=== PATIENT | female | born 1955 | race Caucasian/White ===

== ENCOUNTER 2016-10-06 16:04 | Inpatient (IN) | payer OTHER ==
[~2016-10-06] VITALS: Ht 160 cm; Wt 91.8 kg
[~2016-10-06 16:04] MED LIST: ASPI-628 PO; ATOR20TA PO; DULO60CA42 PO; ESOM20CA28 PO; HYG25 PO; LEVO50TA6 PO; LORA0.5T PO; MAGN250T29 PO; MULT-1007 PO; OMEG1CAP25 PO; RISP0.254 PO; VERA180T5 PO
[2016-10-06 16:09] VITALS: BP 128/76; PULSE 85; RESP 20; O2SAT 97
[2016-10-06] MEDS ORDERED: Heparin 25K Unit/500mL 0.45 NS 25,000 UNIT in IV Premix 1 EACH IV SCH (16:25)
[2016-10-06] MEDS ORDERED: Heparin 5,000 Unit/mL Inj IVPUSH PRN (16:25)
[2016-10-06] MEDS ORDERED: Heparin 5,000 Unit/mL Inj IVPUSH ONE (16:25)
[2016-10-06 16:30] LABS: BASOPHILS % (AUTO) 0.2 % (0-3); EOSINOPHILS % (AUTO) 0.8 % (0-5); MONOCYTES % (AUTO) 7.3 % (4-12); Mean Corpuscular Hemoglobin 29.3 pg (27.0-35.0); Mean Corpuscular Volume 88.7 fL (81-100); NEUTROPHILS % (AUTO) 79.5 % (40-74); Platelet Count 415 bil/L (150-400)
[2016-10-06 16:53] LABS: Magnesium 1.5 mg/dL (1.6-2.6)
--- NOTE | 2016-10-06 17:10 | ED.REPORT ---
HPI-Abd Pain F 40 and Over Date of Service Oct 06, 2016 ED Provider: García Cote MD A 61 year old female with a medical history including GERD, hypothyroidism, hypertension, and hyperlipidemia presents to the ED with worsening epigastric abdominal pain onset this morning, while at work. The pain is "burning" in nature, localized in the RUQ with radiation to her back. The patient also reports nausea. She denies vomiting, chest pain, hematochezia, melena, dysuria, or other symptoms. The patient had a similar episode of pain on 09/30/16. She has an upcoming appointment with GI. The patient drank 1/2 cup of an over-the- counter laxative around 15:30. Nursing Notes Stated Complaint: PAIN IN STOMACH THAT IS AFFECTING BACK Chief Complaint: Female Abdominal Pain Nursing Notes Reviewed: Yes Allergies: Coded Allergies: No Known Allergies (Unverified Allergy, Unknown, 10/06/16) Uncoded Allergies: " SOMETHING GAVE ME HIVES" (Allergy, Unknown, 08/12/14) Scheduled Aspirin Chew (Aspirin Chew) 81 Mg Chew 81 MG PO HS Atorvastatin (Lipitor) 20 Mg Tablet 20 MG PO HS Chlorthalidone (Chlorthalidone) 25 Mg Tablet 25 MG PO DAILY Duloxetine (Cymbalta) 60 Mg Capsule.dr 90 MG PO HS Take a 60 mg and 30 mg pill together Esomeprazole Magnesium (Nexium) 20 Mg Capsule.dr 40 MG PO BIDWM Folic Acid/Multivits-Min/Lut (Multi-Vitamin Gummies) 1 Each Tab.chew 1 EACH PO HS Levothyroxine (Levothyroxine) 50 Mcg Tablet 50 MCG PO QAM Lisinopril (Lisinopril) 10 Mg Tablet 10 MG PO BID Magnesium Oxide (Magnesium) 500 Mg Capsule 500 MG PO HS Hudson-3 Fatty Acids/Fish Oil ([place]udson 3 Fish Oil Softgel) 1 Each Capsule.dr 1 EACH PO HS Scheduled PRN Famciclovir (Famciclovir) 500 Mg Tablet 500 MG PO TID PRN PRN HERPES BREAKOUT Lorazepam (Lorazepam) 0.5 Mg Tablet 0.5 MG PO Q8H PRN PRN For Anxiety Simethicone (Gas-X) 80 Mg Tablet 80-160 MG PO DAILY PRN PRN GAS General Time Seen by MD: 16:14 Chief Complaint Abdominal pain Hx Obtained From: Patient Arrived By: Walk-in Sudden in Onset?: No Onset Occurred: 5 - 8 hours ago Symptom Duration: Since onset Progression since Onset: Gradually worsening Location: : Epigastric: RUQ Quality: Painful Radiation: : Back Severity: Current: Moderate Severity: Maximum: Moderate Associated with: Denies: Dysuria, Fever, Hematochezia Pertinent Negative: Relieved by nothing Context Related History: Reports: Abdominal surgery, GERD Recent Healthcare: No recent doctor visit Similar Sx Previous: Yes Past Medical History Past Medical History Notes: PCP: Dr. Daly Past Medical History Hypothyroidism. Gastroesophageal reflux disease. Normal Myocardial perfusion study in June 2012 Anxiety/Depression Migraines Obstructive sleep apnea Reports: GERD, Hyperlipidemia, Hypertension Reports: Thyroid disease Past Surgical History C6-7 cervical spine surgery. Sinus surgeries x2. Breast reduction surgery. Basal cell carcinoma removed from her eyelid. 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 Physical Exam Vital Signs Vital Signs (First) Date Time Temp Pulse Resp B/P Pulse Ox O2 Delivery O2 Flow Rate FiO2 10/06/16 16:09 36.2 85 20 128/76 97 Initial VS: Reviewed ENT: Conjunctiva normal, No scleral icterus Neurologic: Alert, Oriented, Nonfocal Psychiatric: Mood/affect normal, Behavior normal, Normal thought content General/Constitutional: Awake, Alert Respiratory / Chest: Breath sounds NL, Breath sounds = bilat, No respiratory distress Cardiovascular: Heart rate NL, Regular rhythm, Heart sounds NL, No gallop, No murmurs, No rubs, Peripheral circulation NL (Good distal pulses) Abdomen: Soft, No distention Tenderness/Guarding/Rebound: Positive: Tender RUQ... (Severe) Guarding in RUQ Back: Full range of motion, No CVA tenderness Head / Eyes: Atraumatic, Normocephalic Skin: Warm, Dry Interpretation & Diagnostics Abdomen US: IMPRESSION: 1. No evidence of cholelithiasis or cholecystitis. 2. Increased hepatic echogenicity compatible with steatosis. Dictated by: Yoan Garcia M.D. on 10/06/2016 at 19:22 URINE DIPSTICK: Bedside Urine Specific [place] * 1.010 Bedside Urine pH * 5 Bedside Urine Leukocyte Esterase * ++ Bedside Urine Nitrite * Negative Bedside Urine Protein * Negative Bedside Urine Glucose * Normal Bedside Urine Ketones * Negative Bedside Urine Urobilinogen * Normal Bedside Urine Bilirubin * Negative Bedside Urine Occult Blood * Trace Urine to Lab * Yes Lab Results Interpretation Result Diagram: 10/06/16 1618 10/06/16 1618 Test 10/06/16 16:18 10/06/16 17:05 10/06/16 17:24 White Blood Count 20.2th/mm3 (3.8-10.1) Red Blood Count 4.71mil/mm3 (3.90-5.20) Hemoglobin 13.8g/dL (12.0-15.6) Hematocrit 41.8% (35.0-46.0) Mean Corpuscular Volume 88.7fL (81-100) Mean Corpuscular Hemoglobin 29.3pg (27.0-35.0) Mean Corpuscular Hemoglobin Concent 33.0% (32.0-37.0) Red Cell Distribution Width 14.3% (12.3-15.4) Platelet Count 415bil/L (150-400) Neutrophils (%) (Auto) 79.5% (40-74) Lymphocytes (%) (Auto) 11.9% (14-46) Monocytes (%) (Auto) 7.3% (4-12) Eosinophils (%) (Auto) 0.8% (0-5) Basophils (%) (Auto) 0.2% (0-3) Sodium Level 135mEq/L (134-144) Potassium Level 3.5mEq/L (3.5-5.2) Chloride Level 93mEq/L (97-108) Carbon Dioxide Level 24mmol/L (18-29) Blood Urea Nitrogen 13mg/dL (8-27) Creatinine 0.89mg/dL (0.57-1.00) Estimat Glomerular Filtration Rate 92mL/min (>59) Glucose Level 138mg/dL (60-99) Calcium Level 10.0mg/dL (8.5-10.1) Magnesium Level 1.5mg/dL (1.6-2.6) Total Bilirubin 0.5mg/dL (0.0-1.2) Aspartate Amino Transf (AST/SGOT) 20U/L (0-50) Alanine Aminotransferase (ALT/SGPT) 18U/L (0-32) Alkaline Phosphatase 86U/L (25-165) Total Protein 8.0g/dL (6.4-8.4) Albumin 4.2g/dL (3.4-5.0) Lipase 90U/L (13-60) Hold Urine Received (Received) Lactic Acid Level 2.9mmol/L (0.4-2.0) Hold Cooley Top Tube Received (Received) Urine Color Yellow (YELLOW) Urine Appearance Clear (CLEAR,HAZY) Urine pH 6.0 (5.0-8.0) Urine Specific [place] 1.020 (1.003-1.035) Urine Protein Negativemg/dL (NEG,TRACE) Urine Glucose (UA) Negativemg/dL (NEGATIVE) Urine Ketones Negativemg/dL (NEGATIVE) Urine Occult Blood Trace (NEGATIVE) Urine Nitrite Negative (NEGATIVE) Urine Bilirubin Negative (NEGATIVE) Urine Urobilinogen Normalmg/dL (NORMAL) Urine Leukocyte Esterase Moderate (NEGATIVE) Urine RBC 0-2/hpf (0-2) Urine WBC 0-5/hpf (0-5) Urine Epithelial Cells Few/hpf (NONE-MOD) Urine Crystals None seen (NONE SEEN) Urine Bacteria Few/hpf (NONE-FEW) Urine Hyaline Casts None/lpf (NONE) Urine Granular Casts None seen (NONE SEEN) Urine Waxy Casts None seen (NONE SEEN) Urine Red Blood Cell Casts None seen (NONE SEEN) Urine White Blood Cell Casts None seen (NONE SEEN) Urine Mucus None seen (None Seen) Urine Trichomonas None seen (NONE SEEN) Urine Yeast None (NONE SEEN) Urinalysis Comment None Urine Culture Reflexed Indicated CT Abd / Pelvis Interpretation MPRESSION: 1. Mild mesenteric fat stranding adjacent to the uncinate process of the pancreas and 3rd portion of the duodenum may reflect a mild pancreatitis or duodenitis. Recommend correlation clinically including with laboratory values. No evidence of associated fluid collections or free air. Dictated by: Yoan Garcia M.D. on 10/06/2016 at 18:43 Study type: Abdominal CT IV contrast, Abdom CT oral contrast Interpretation / Wet Read by: Interpret - Radiologist Re-Eval/Medical Decision Med Decision/Clinical Course A 61 year old female with a medical history including GERD, hypothyroidism, hypertension, and hyperlipidemia presents to the ED with worsening epigastric abdominal pain onset this morning, while at work. The pain is "burning" in nature, localized in the RUQ with radiation to her back. The patient also reports nausea. She denies vomiting, chest pain, hematochezia, melena, dysuria, or other symptoms. The patient had a similar episode of pain on 09/30/16. She has an upcoming appointment with GI. The patient drank 1/2 cup of an over-the- counter laxative around 15:30. Here in the emergency department the patient is afebrile and hemodynamically stable although she appears quite uncomfortable. LABS: Leukocytosis of 20 - increased from prior of 10, two years ago Stable hematocrit of 41.8 CMP unremarkable LFTs within normal limits Lipase mildly elevated at 90 UA: Moderate leukocytes, few bacteria, no nitrites, and trace blood present, otherwise normal Abdomen US: IMPRESSION: 1. No evidence of cholelithiasis or cholecystitis. 2. Increased hepatic echogenicity compatible with steatosis. Dictated by: Yoan Garcia M.D. on 10/06/2016 at 19:[address]: 1. Mild mesenteric fat stranding adjacent to the uncinate process of the pancreas and 3rd portion of the duodenum may reflect a mild pancreatitis or duodenitis. Recommend correlation clinically including with laboratory values. No evidence of associated fluid collections or free air. Dictated by: Yoan Garcia M.D. on 10/06/2016 at 18:43 Patient received IV fluids, pantoprazole, Dilaudid, and Zofran in the ED. The patient's laboratory workup today is relatively unremarkable except for her significant leukocytosis and mildly elevated lipase. Her overall presentation is quite consistent with acute pancreatitis though the cause at this moment remains unclear. I would expect her lipase to be significantly more elevated given the degree of her discomfort however leukocytosis is impressive. The abdominal CT as below demonstrates Stranding and inflammation about the duodenum and pancreas which is consistent with her pain today. I treated her with Zofran for nausea, IV fluids and hydromorphone for pain. She has been made nothing by mouth. She will be admitted to the hospitalist service and consultation with gastroenterology for further management. She was transferred in stable condition. Source of Hx: Old records Re-Evaluation/Progress : Time of Eval: 19:50 Patient Status: Condition improved Re-Evaluation/Progress Note: Discussed with patient US, CT, and lab results, diagnosis, and plan for admit. Patient agrees with plan for care and all questions were addressed. 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: Agrees with eval, Agrees with plan, Accepts admit Counseled Regarding: Diagnosis, Lab results, Need for admission Discharge & Departure Primary Impression: Pancreatitis Chronicity: acute Pancreatitis type: unspecified pancreatitis type Acute pancreatitis complication: unspecified Qualified Code: K85.90 - Acute pancreatitis without necrosis or infection, unspecified Additional Impressions: Duodenitis Epigastric pain Nausea and vomiting Vomiting type: unspecified Vomiting Intractability: unspecified Qualified Code: R11.2 - Nausea with vomiting, unspecified Elevated lipase Leukocytosis Leukocytosis type: unspecified Qualified Code: D72.829 - Elevated white blood cell count, unspecified Disposition: ADMITTED TO HOSPITAL Discharge Condition All VS Reviewed: Yes Condition: Improved Referrals: Babita Adair (PCP) Joselineibandrae Attestation Portions of this note were transcribed by Amanda Novak. I, Dr. Cote, personally performed the history, physical exam, and medical decision-making; I reviewed and confirmed the accuracy of the information in the transcribed note. Signed by: Malena Noble, 10/06/2016, 22:35 copies to: Babita Adair Beck O MD Oct 06, 2016 17:10 AMANDA NOVAK Oct 06, 2016 17:18
[2016-10-06] MEDS ORDERED: Ondansetron 2 mg/mL 2 mL Inj IVPUSH ONE (17:20)
[2016-10-06] MEDS ORDERED: Pantoprazole 4 mg/mL 10 mL Inj IVPUSH ONE (17:20)
[2016-10-06] MEDS ORDERED: 0.9% Sodium Chloride 1,000 ML IV ONE (17:20)
[2016-10-06 17:34] LABS: APPEARANCE,URINE CLEAR (CLEAR,HAZY); COLOR,URINE YELLOW (YELLOW)
[2016-10-06 17:35] LABS: OCCULT BLOOD,URINE TRACE (NEGATIVE); UROBILINOGEN,URINE NORMAL (NORMAL)
[2016-10-06] MEDS: HYDROmorphone 0.5 mg/0.5 mL iSecure Syringe IVPUSH PRN ×2 (17:35→19:37)
--- NOTE | 2016-10-06 18:52 | DRSVH ---
PROCEDURE: CT ABDOMEN AND PELVIS WITH CONTRAST ([id number]) INDICATIONS: Right upper quadrant abdominal pain. TECHNIQUE: After the administration of oral and intravenous contrast, 5 mm thick sections acquired from the diap hragms to the symphysis. 5 mm thick coronal and sagittal reformats were performed. For radiation do se reduction, the following was used: automated exposure control, adjustment of mA and/or kV accordi ng to patient size. COMPARISON: None. FINDINGS: Image quality: Excellent. ABDOMEN: Lung bases: There is mild dependent atelectasis. A small hiatal hernia is present. Heart size is no rmal. Solid organs: Liver and spleen are normal in size and enhancement. Gallbladder appears within rosalee l limits without calcified gallstones or wall thickening. Biliary system is non-dilated. No adrenal nodules. Kidneys are normal in size and enhancement, without hydronephrosis. There is mild fat stranding within the mesenteric root along the uncinate process of the pancreas and adjacent to the 3rd portion of duodenum. Peritoneum and bowel: Stomach, small bowel, and colon loops are normal in caliber and wall thickness . No free fluid or air. Nodes and vessels: No retroperitoneal or mesenteric adenopathy. Aorta and inferior vena cava are no rmal in caliber. Miscellaneous: No ventral hernias. PELVIS: Genitourinary: Bladder wall thickness is normal. Miscellaneous: No inguinal hernias or adenopathy. Bones: No suspicious bony lesions. No vertebral body compression fractures. IMPRESSION: 1. Mild mesenteric fat stranding adjacent to the uncinate process of the pancreas and 3rd portion of the duodenum may reflect a mild pancreatitis or duodenitis. Recommend correlation clinically includ ing with laboratory values. No evidence of associated fluid collections or free air. Dictated by: Yoan Garcia M.D. on 10/06/2016 at 18:43 Approved by: Yoan Garcia M.D. on 10/06/2016 at 18:51
--- NOTE | 2016-10-06 19:26 | DRSVH ---
PROCEDURE: US ABDOMEN ([id number]) INDICATIONS: ruq pain, suspect cholecystitis TECHNIQUE: Real-time scanning was performed of the abdominal and retroperitoneal organs, with image documentatio n. COMPARISON: [facility], CT, CT ABD PELVIS W CON, 10/06/2016, 18:34. FINDINGS: Liver: Liver is normal in size with increased cortical echogenicity and a coarse sonographic echotex ture consistent with fatty infiltration. Gallbladder: No gallstones, gallbladder wall thickening, or pericholecystic fluid. Biliary ducts: Intrahepatic bile ducts are non-dilated. Extrahepatic bile duct caliber measures up to 4 mm. Normal is 6-7 mm or less in diameter, or 10 mm or less post-cholecystectomy. Pancreas: Visualized portions of the pancreas are sonographically normal. Spleen: Spleen is normal in size and homogeneous in echotexture. Kidneys: Right kidney measures 10.6 cm long; left kidney measures 11.1 cm long. No hydronephrosis. Aorta: Visualized aorta is normal in caliber at less than 3 cm. Iliacs: Proximal common iliac arteries are normal in caliber at less than 2.5 cm. IVC: Intrahepatic inferior vena cava is patent. Miscellaneous: No free abdominal fluid. IMPRESSION: 1. No evidence of cholelithiasis or cholecystitis. 2. Increased hepatic echogenicity compatible with steatosis. Dictated by: Yoan Garcia M.D. on 10/06/2016 at 19:22 Approved by: Yoan Garcia M.D. on 10/06/2016 at 19:24
[2016-10-06] MEDS ORDERED: Lactated Ringer's 1,000 ML IV SCH (19:52)
[2016-10-06] MEDS ORDERED: Ondansetron 2 mg/mL 2 mL Inj IVPUSH PRN ×2 (19:55→20:05)
[2016-10-06] MEDS ORDERED: Alum-Mag Hydrox-Simeth 30 mL Suspension PO PRN ×2 (19:55→20:05)
[2016-10-06] MEDS ORDERED: Acetaminophen IV 1,000 MG in IV Premix 1 EACH IV PRN (20:05)
[2016-10-06] MEDS ORDERED: Polyethylene Glycol (PEG) 17 Gm Powder PO PRN (20:05)
[2016-10-06] MEDS ORDERED: LISI10TA PO (20:10)
[2016-10-06] MEDS ORDERED: FAMC500T18 PO (20:10)
[2016-10-06] MEDS ORDERED: ASPI81TA3 PO (20:12)
[2016-10-06] MEDS ORDERED: SIME80TA53 PO (20:12)
[2016-10-06] MEDS ORDERED: FOLI-89 PO (20:12)
[2016-10-06] MEDS ORDERED: MAGN500C4 PO (20:13)
--- NOTE | 2016-10-06 20:21 | PCM.HPMED ---
Subjective Date of Service Oct 06, 2016 Primary Provider: Admitting Physician: Primary Care Physician: Babita Adair Attending Physician: Admit Status: From the Emergency Department Chief Complaint: Epigastric Abdominal pain History of Present Illness: This is a pleasant 61 year old female with a medical history including obstructive sleep apnea wears CPAP at home, GERD, hypothyroidism, hypertension, and hyperlipidemia presented to the ED with worsening RuQ and epigastric abdominal pain that radiates to the back onset this morning at approximately 0300. Patient states that she had similar pain on 09/30/2018 for her 's birthday. Patient states that she had taco soup and enchiladas on the day with 4-5 out of 10 epigastric pain that eventually resolved over 24 hours. Patient states that last night she had 5 potatoes with sausage and an ache. In workup early this morning with 9-10/10 burning abdominal pain. Pain is described as a burning sensation in the epigastric region and is associated with nausea however patient denies vomiting. Patient states today she cottage cheese with fruit cocktail and tolerated this fine. She denies any previous epigastric or right upper quadrant pain prior to September 30. She does occasionally have a little bit of alcohol but this is very rarely. Patient's last drink was on September 30 where she took some sips of Coke otherwise did not drink. Patient does have a swallow study with her instructional technology coach for history of acid reflux scheduled in 2 days. She denies fever, vomiting, chest pain, hematochezia, melena, dysuria, or other symptoms. The patient had a similar episode of pain on 09/30/16. She has a swallow test for GERD scheduled in two days. The patient drank 1/2 cup of an [id number] laxative around 15:30 with no help. The patient's Racine score is a 7 and consistent with organ dysfunction. Vital signs in the ED: Temperature 36.2, pulse 85, RR 20, blood pressure 128/76 with a map of 93, pulse oximetry 97% on room air Patient was given 1 L of fluids normal saline in the ED. Patient was given 40 of Protonix IV Patient was given Zofran 8 mg IV once. Lipase was 90 UA showed trace occult blood, few bacteria otherwise negative UA Urine culture is pending Hemogram showed: WBCs 20.2 with 79.5% PMNs, H/H 13.8/41.8, MCV 88.7, MCH 29.3, MCHC 33.0, platelet count 415, Chemistry panel was significant for chloride of 93, glucose of 138, magnesium 1.5 CT abdomen and pelvis showed: Mild mesenteric fat stranding adjacent to the uncinate process of the pancreas and 3rd portion of the duodenum may reflect a mild pancreatitis or duodenitis. Recommend correlation clinically including with laboratory values. No evidence of associated fluid collections or free air. Ultrasound abdomen showed: 1. No evidence of cholelithiasis or cholecystitis. Increased hepatic echogenicity compatible with steatosis. Review of Systems: A comprehensive review of systems was conducted and was negative except as mentioned in history of present illness. Allergies Coded Allergies: No Known Allergies (Unverified Allergy, Unknown, 10/06/16) Uncoded Allergies: " SOMETHING GAVE ME HIVES" (Allergy, Unknown, 08/12/14) Home Medications Aspirin (Aspir 81) 81 Mg Tablet.dr 81 MG PO DAILY Atorvastatin (Lipitor) 20 Mg Tablet 20 MG PO HS Chlorthalidone (Chlorthalidone) 25 Mg Tablet 25 MG PO DAILY Duloxetine (Cymbalta) 90 MG PO PM Take a 60 mg and 30 mg pill together Esomeprazole Magnesium (Nexium) 20 Mg Capsule.dr 40 MG PO TWICE A DAY Levothyroxine (Levothyroxine) 50 Mcg Tablet 50 MCG PO DAILY Magnesium Oxide (Magnesium) 500 MG PO EVERY OTHER DAY history of migraines Barre-3 Fatty Acids/Fish Oil (Barre 3 Fish Oil Softgel) 1 Each Capsule.dr 1 EACH PO DAILY Risperidone (Risperidone) 0.25 Mg Tablet 1-4 TAB PO HS Lisinopril 10 mg twice a day PRN Lorazepam (Lorazepam) 0.5 Mg Tablet 0.5 MG PO HS PRN PRN For Insomnia Antacid 750 mg- 80 mg takes 1-2 when necessary Multivitamin (Multi-Vitamin Daily) 1 Each Tablet 1 EACH PO Famciclovir 500 mg when needed every 8 hours 5 days PMH Hypothyroidism. Gastroesophageal reflux disease. Normal Myocardial perfusion study in June 2012 Anxiety/Depression Migraines not since October 2015 Obstructive sleep apnea or CPAP at home Reports: GERD, Hyperlipidemia, Hypertension Reports: Thyroid disease Obesity Genital herpes Basal cell carcinoma the left eyelid PCP: Babita Irving Surgical History C6-7 cervical spine surgery. Sinus surgeries x2. 1986 Breast reduction surgery. Basal cell carcinoma removed from her eyelid and he 93 Vaginal surgery Reports: Total vaginal Hysterectomy 1984 Family History Mom with hypertension and coronary artery disease Dad with coronary artery disease Aunt with hypertension, hyperlipidemia, diabetes mellitus Sister of metastatic sarcoma Social History Hx Alcohol Use: No Hx Substance Use: No Hx Tobacco Use: Yes Smoking Status: Former Smoker Exam Vital Signs Vital Sign - Last Date Time Temp Pulse Resp B/P Pulse Ox O2 Delivery O2 Flow Rate FiO2 10/06/16 16:09 36.2 85 20 128/76 97 Exam General: Patient is alert and oriented 3, in no acute distress, but in mild pain 3 out of 10 resting comfortably in bed, jovial, speaking full sentences, HEENT: NC/AT, eyes, PERRLA, EOMI, neck, soft supple, no adenopathy, no JVD, no masses, no thyromegaly, throat mucous membranes pink and dry, no erythema, no exudates. Lungs: CTAB all salazar, no wheezes, no rhonchi, no crackles, no adventitious lung sounds, no use of accessory muscles of respiration, good air movement, good respiratory effort. Heart: Regular rate and rhythm, no murmur, S1-S2 present, no rub, no click, no distant heart sounds, Abdomen: Soft, tender right upper quadrant to palpation and percussion, tender epigastric, patient has Acosta's point at the level of the ninth rib on the right, nondistended, bowel sounds active, no rebound, no guarding, Genitourinary: No CVA tenderness, no suprapubic tenderness, no Hancock catheter, Extremities: Muscle strength, 5 out of 5 upper/lower extremity and symmetric laterally, pulses equal and symmetric upper/lower extremity including radial and dorsalis pedis, no edema Neurologic: Grossly neurologically intact, speaking in full sentences, no focal neurological signs Skin: Warm and dry, no rashes no petechiae Psychiatric: Mood is cheerful and mood and affect are congruent and appropriate. Lab and Diagnostics Result Diagram: 10/06/16 1618 10/06/16 161 X-Rays, CTs and MRIs Date of Service: 10/06/161818 PROCEDURE: CT ABDOMEN AND PELVIS WITH CONTRAST INDICATIONS: Right upper quadrant abdominal pain. TECHNIQUE: After the administration of oral and intravenous contrast, 5 mm thick sections acquired from the diaphragms to the symphysis. 5 mm thick coronal and sagittal reformats were performed. For radiation dose reduction, the following was used : automated exposure control, adjustment of mA and/or kV according to patient size. COMPARISON: None. FINDINGS: Image quality: Excellent. ABDOMEN: Lung bases: There is mild dependent atelectasis. A small hiatal hernia is present. Heart size is normal. Solid organs: Liver and spleen are normal in size and enhancement. Gallbladder appears within normal limits without calcified gallstones or wall thickening. Biliary system is non-dilated. No adrenal nodules. Kidneys are normal in size and enhancement, without hydronephrosis. There is mild fat stranding within the mesenteric root along the uncinate process of the pancreas and adjacent to the 3rd portion of duodenum. Peritoneum and bowel: Stomach, small bowel, and colon loops are normal in caliber and wall thickness. No free fluid or air. Nodes and vessels: No retroperitoneal or mesenteric adenopathy. Aorta and inferior vena cava are normal in caliber. Miscellaneous: No ventral hernias. PELVIS: Genitourinary: Bladder wall thickness is normal. Miscellaneous: No inguinal hernias or adenopathy. Bones: No suspicious bony lesions. No vertebral body compression fractures. IMPRESSION: 1. Mild mesenteric fat stranding adjacent to the uncinate process of the pancreas and 3rd portion of the duodenum may reflect a mild pancreatitis or duodenitis. Recommend correlation clinically including with laboratory values. No evidence of associated fluid collections or free air. Dictated by: Yoan Garcia M.D. on 10/06/2016 at 18:43 Approved by: Yoan Garcia M.D. on 10/06/2016 at 18:51 Additional Diagnostics: Date of Service: 10/06/16 1720 PROCEDURE: US ABDOMEN INDICATIONS: ruq pain, suspect cholecystitis TECHNIQUE: Real-time scanning was performed of the abdominal and retroperitoneal organs, with image documentation. COMPARISON: [facility], CT, CT ABD PELVIS W CON, 10/06/2016, 18:34. FINDINGS: Liver: Liver is normal in size with increased cortical echogenicity and a coarse sonographic echotexture consistent with fatty infiltration. Gallbladder: No gallstones, gallbladder wall thickening, or pericholecystic fluid. Biliary ducts: Intrahepatic bile ducts are non-dilated. Extrahepatic bile duct caliber measures up to 4 mm. Normal is 6-7 mm or less in diameter, or 10 mm or less post-cholecystectomy. Pancreas: Visualized portions of the pancreas are sonographically normal. Spleen: Spleen is normal in size and homogeneous in echotexture. Kidneys: Right kidney measures 10.6 cm long; left kidney measures 11.1 cm long. No hydronephrosis. Aorta: Visualized aorta is normal in caliber at less than 3 cm. Iliacs: Proximal common iliac arteries are normal in caliber at less than 2.5 cm. IVC: Intrahepatic inferior vena cava is patent. Miscellaneous: No free abdominal fluid. IMPRESSION: 1. No evidence of cholelithiasis or cholecystitis. 2. Increased hepatic echogenicity compatible with steatosis. Dictated by: Yoan Garcia M.D. on 10/06/2016 at 19:22 Approved by: Yoan Garcia M.D. on 10/06/2016 at 19:24 Assessment & Plan This is a pleasant 61-year-old female with history of hypothyroidism, hyperlipidemia, hypertension and acid reflux who presented with acute right upper quadrant and epigastric tenderness onset at 03 100 this morning related 9- 10 out of 10 and associated with nausea. Patient had elevated lipase of 90 and was admitted to the [facility] for observation and further workup. # Acute gastric abdominal pain, Pancreatitis versus duodenitis, POA, active -Patient describing 9-10 out of 10 acute right upper quadrant and epigastric abdominal pain onset 03 100 this morning. -Patient had upper endoscopy done 10/13/[address]Abou Minor for feeling PPI therapy. Impression was upper endoscopy to second part of the duodenum, a 3 cm hiatal hernia was seen, irregular squamocolumnar junction was biopsied, -Vital signs in the ED: Temperature 36.2, pulse 85, story rate 20, blood pressure 128/76 with a map of 93, pulse oximetry 97% on room air -CT abdomen and pelvis showed: Mild mesenteric fat stranding adjacent to the uncinate process of the pancreas and 3rd portion of the duodenum may reflect a mild pancreatitis or duodenitis. Recommend correlation clinically including with laboratory values. No evidence of associated fluid collections or free air. -Ultrasound abdomen showed: 1. No evidence of cholelithiasis or cholecystitis. Increased hepatic echogenicity compatible with steatosis. -Physical exam findings significant for a Acosta's point consistent with acute pancreatitis located at the right costal chondral junction of rib 9. -Racine II score (7). A score of 2 or > in any category = organ failure. -Patient does not meet sepsis criteria, she is not febrile, heart rate is less than 90, blood pressure is 128/76, respiratory rate is 20, temperature is 36.2, however patient does have a elevated white blood cell count of 20 -IV Fluids normal saline at 200 mL per hour -Patient's current pain is 3 out of 10 on pain medication in ED. Patient states that her pain was 9-10 out of 10 this morning -IV Dilaudid 0.5-1 mg every 4 hours when necessary. We will consider adding additional if pain not controlled on this -DVT prophylaxis with subcutaneous heparin every 8 hours -NPO for now with transition to begin soft, low fat diet when pain decreases and patient is able to tolerate -Continue Protonix 40 mg IV -ESR and CRP ordered -Of note patient is scheduled for swallow study on Thursday at this facility. This was ordered by her PCP Babita Irving. #Leukocytosis present on admission, -WBCs, 20.2 -Likely secondary to #1, we will continue to monitor -We will order pro calcitonin -Ordered and pending lactic acid # Elevated lipase, present on admission, active - Lipase 90, likely secondary to #1 acute pancreatitis versus duodenitis #Elevated glucose, POA, active -Glucose 138 -Continue to monitor #Hypothyroidism. -Continue home medication levothyroxine #Gastroesophageal reflux disease. -Hold home medication esomeprazole -IV Protonix 40 mg daily ordered #Anxiety/Depression -We will hold home medication dose Loxitane 90 mg overnight #Migraines -not since October 2015 -We will hold home medication magnesium Obstructive sleep apnea or CPAP at home -Family to bring in CPAP mask #Hyperlipidemia -Hold medication atorvastatin #Hypertension We will continue chlorthalidone 25 mg daily We will continue lisinopril 10 mg twice a day Disposition: Admitted to observation, secondary to severity of presenting symptoms, treatment plan, complexity of clinical work up, and risk of adverse events. CODE STATUS: Full code PCP: Babita Irving DVT PE prophylaxis: SCD's/Enoxiparin/SubQ heparin Q8H Contact: Tita patient's daughter [phone] [place] patient's through 6 are [phone] Vital signs in the ED: Temperature 36.2, pulse 85, story rate 20, blood pressure 128/76 with a map of 93, pulse oximetry 97% on room air Patient was given 1 L of fluids normal saline in the ED. Patient was given 40 of Protonix IV Patient was given Zofran 8 mg IV once. Lipase was 90 UA showed trace occult blood, few bacteria otherwise negative UA Urine culture is pending Hemogram showed: WBCs 20.2 with 79.5% PMNs, H/H 13.8/41.8, MCV 88.7, MCH 29.3, MCHC 33.0, platelet count 415, Chemistry panel was significant for chloride of 93, glucose of 138, magnesium 1.5 Pain Evaluation: Adequate Pain Control VTE Prophylaxis: Sub-Q Heparin (Unfractionated) Resuscitation Status: CPR: Attempt Resuscitation Attending Statement The patient was seen and examined together with house staff on 10/06/2016 and I agree with the history, exam and plan as outlined in the note above. Cayden Kilpatrick DO Oct 06, 2016 20:21 Renetta Melara DO Oct 07, 2016 03:18
[2016-10-06 20:42] VITALS: BP 138/82; PULSE 82; RESP 18; O2SAT 98
[2016-10-06 21:25] VITALS: BP 119/66; PULSE 73; RESP 20; O2SAT 94
--- NOTE | 2016-10-06 21:45 | NUR ---
Admit pt arrived to room 249-2 at 2046 per uzair, accompanied by mri special procedures technologist. and daughter. pt transferred self to bed, pt alert/oriented x3, IV on left arm saline locked at this time. pt reported RUQ abdominal pain on rate of 6/10, which is tolerable per pt. Denies Nausea at this time. Oriented pt to room. Admission is done by this RN, and med.rec. is done by admit RN. call light within reach.
[2016-10-06] MEDS: 0.9% Sodium Chloride 1,000 ML IV SCH (22:38)
[2016-10-07] VITALS (10 sets, daily range): BP systolic 92–120; BP diastolic 55–72; PULSE 63–75; RESP 12–18; O2SAT 92–99
[2016-10-07] MEDS: Heparin 5,000 Unit/mL Inj SUBQ SCH ×3 (00:38→16:52)
[2016-10-07] MEDS: HYDROmorphone 0.5 mg/0.5 mL iSecure Syringe IVPUSH PRN ×3 (03:16→12:54)
[2016-10-07 03:45] LABS: BASOPHILS % (AUTO) 0.1 % (0-3); EOSINOPHILS % (AUTO) 1.3 % (0-5); MONOCYTES % (AUTO) 10.2 % (4-12); Mean Corpuscular Hemoglobin 29.5 pg (27.0-35.0); Mean Corpuscular Volume 89.4 fL (81-100); NEUTROPHILS % (AUTO) 69.5 % (40-74); Platelet Count 339 bil/L (150-400)
[2016-10-07] MEDS: 0.9% Sodium Chloride 1,000 ML IV SCH ×2 (04:06→07:57)
--- NOTE | 2016-10-07 06:41 | NUR ---
pain pt c/o RUQ abdominal pain on rate of 6-03/08. PRN IV APAP and IVP Dilaudid administered which was effective . pt denies N/V. pt has been NPO. Gave PO medication with sip of water this morning. will continue to monitor.
[2016-10-07] MEDS ORDERED: Pantoprazole 4 mg/mL 10 mL Inj IVPUSH ONE (08:30)
[2016-10-07] MEDS ORDERED: Magnesium Sulf 4 Gm/100 mL H2O 4 GM in IV Premix 1 EACH IV ONE (08:45)
--- NOTE | 2016-10-07 09:00 | NUR ---
Pain Pt c/o abd pain at 4/10, although pt appears to be very uncomfortable. Describes it as RUQ aching. Pt given Dilaudid 1mg. This decreased pt's pain to 2/10. Pt has expressed that the pain medication only lasts a couple hours. Hospitalist was then asked to order PO pain medications.
[2016-10-07] MEDS: oxyCODONE-Acetamin 5-325 mg Tablet PO PRN ×3 (11:24→21:37)
[2016-10-07] MEDS: 0.9% NaCl + KCl 20 mEq/L 1,000 ML IV SCH ×4 (13:02→21:15)
--- NOTE | 2016-10-07 14:16 | NUR ---
Social Work-screening: Data:EMR Reviewed. Pt is a 61 y/o female who was admitted on 10/06/16 for pancreatitis per H&P. Pt's insurance is [employer] and [employer]. SW met with pt and daughter at bedside to discuss discharge planning, SW role explained. Pt resides at home with her where she remains independent with ADLS. Pt has no HH or SNF history. Pt has no intermediate accountant care insurance or VA benefits. SW discussed DPOA/advanced directive, pt has not completed this paperwork and is interested in any paperwork at this time. Per RN notes, pt has been up independent in her room. Pt's daughter or to provide transport home at discharge. No anticipated discharge needs. SW will continue to follow if needs arise. Assessment:Pt who is independent at baseline. Plan:Pt to discharge home when medically stable via POV. No discharge needs identified. SW will continue to follow if needs arise. NAUN Alvarez
--- NOTE | 2016-10-07 21:27 | PCM.PNMED ---
Subjective Date of Service Oct 07, 2016 Subjective The patient continues to have some abdominal pain. However, she is feeling better today and would like to try some clear liquids. Exam Vital Signs Vital Sign - Last Date Time Temp Pulse Resp B/P Pulse Ox O2 Delivery O2 Flow Rate FiO2 10/07/16 20:49 37.1 66 16 109/69 94 Room Air Intake and Output 10/06/16 10/06/16 10/07/16 Cumulative From/Thru 15:00 23:00 07:00 10/06/16 16:09 - 10/07/16 06:45 Intake Total 1000 ml 1000 ml Output Total 575 ml 575 ml Balance 1000 ml -575 ml 425 ml IV Total 1000 ml 1000 ml Output Urine Total 575 ml 575 ml Exam General: The patient is in no apparent distress. HEENT: Head is atraumatic and normocephalic. Eyes: Pupils are equally round and reactive to light and accommodation. Extraocular muscles are intact. Sclera are white, anicteric. Subconjunctival mucosa is pink. Ears and nose are unremarkable. Oropharynx: There is no mucosal lesions, there is no thrush, there is no pharyngitis. Neck: Is supple, there are no nodes, or masses or tenderness. Chest: Is clear to auscultation and percussion. There are no rales, rhonchi, wheezes or rubs. Heart: Rate, rhythm is regular. There is no murmur, rub or gallop. Abdomen: Good bowel sounds are present. Abdomen is obese, soft, with nonspecific right upper quadrant and epigastric tenderness. There is no rebound tenderness. There is no organomegaly or masses were appreciated. Extremities: Are symmetrical and well perfused. There is no edema, there is no cellulitis, no rash. Neurologic: There are no focal neurological deficits. Cranial nerves II through XII are intact. There are no sensory or motor deficits. Psychiatric: Patients mood is calm and shows no sign of agitation. Genital: Deferred Rectal: Deferred Lab and Diagnostics Result Diagram: 10/07/16 0340 10/07/16 0915 X-Rays, CTs and MRIs Date of Service: 10/06/16 470 PROCEDURE: CT ABDOMEN AND PELVIS WITH CONTRAST INDICATIONS: Right upper quadrant abdominal pain. TECHNIQUE: After the administration of oral and intravenous contrast, 5 mm thick sections acquired from the diaphragms to the symphysis. 5 mm thick coronal and sagittal reformats were performed. For radiation dose reduction, the following was used : automated exposure control, adjustment of mA and/or kV according to patient size. COMPARISON: None. FINDINGS: Image quality: Excellent. ABDOMEN: Lung bases: There is mild dependent atelectasis. A small hiatal hernia is present. Heart size is normal. Solid organs: Liver and spleen are normal in size and enhancement. Gallbladder appears within normal limits without calcified gallstones or wall thickening. Biliary system is non-dilated. No adrenal nodules. Kidneys are normal in size and enhancement, without hydronephrosis. There is mild fat stranding within the mesenteric root along the uncinate process of the pancreas and adjacent to the 3rd portion of duodenum. Peritoneum and bowel: Stomach, small bowel, and colon loops are normal in caliber and wall thickness. No free fluid or air. Nodes and vessels: No retroperitoneal or mesenteric adenopathy. Aorta and inferior vena cava are normal in caliber. Miscellaneous: No ventral hernias. PELVIS: Genitourinary: Bladder wall thickness is normal. Miscellaneous: No inguinal hernias or adenopathy. Bones: No suspicious bony lesions. No vertebral body compression fractures. IMPRESSION: 1. Mild mesenteric fat stranding adjacent to the uncinate process of the pancreas and 3rd portion of the duodenum may reflect a mild pancreatitis or duodenitis. Recommend correlation clinically including with laboratory values. No evidence of associated fluid collections or free air. Dictated by: Yoan Garcia M.D. on 10/06/2016 at 18:43 Approved by: Yoan Garcia M.D. on 10/06/2016 at 18:51 Additional Diagnostics Date of Service: 10/06/16 1720 PROCEDURE: US ABDOMEN INDICATIONS: ruq pain, suspect cholecystitis TECHNIQUE: Real-time scanning was performed of the abdominal and retroperitoneal organs, with image documentation. COMPARISON: [facility], CT, CT ABD PELVIS W CON, 10/06/2016, 18:34. FINDINGS: Liver: Liver is normal in size with increased cortical echogenicity and a coarse sonographic echotexture consistent with fatty infiltration. Gallbladder: No gallstones, gallbladder wall thickening, or pericholecystic fluid. Biliary ducts: Intrahepatic bile ducts are non-dilated. Extrahepatic bile duct caliber measures up to 4 mm. Normal is 6-7 mm or less in diameter, or 10 mm or less post-cholecystectomy. Pancreas: Visualized portions of the pancreas are sonographically normal. Spleen: Spleen is normal in size and homogeneous in echotexture. Kidneys: Right kidney measures 10.6 cm long; left kidney measures 11.1 cm long. No hydronephrosis. Aorta: Visualized aorta is normal in caliber at less than 3 cm. Iliacs: Proximal common iliac arteries are normal in caliber at less than 2.5 cm. IVC: Intrahepatic inferior vena cava is patent. Miscellaneous: No free abdominal fluid. IMPRESSION: 1. No evidence of cholelithiasis or cholecystitis. 2. Increased hepatic echogenicity compatible with steatosis. Dictated by: Yoan Garcia M.D. on 10/06/2016 at 19:22 Approved by: Yoan Garcia M.D. on 10/06/2016 at 19:24 Assessment & Plan This is a pleasant 61-year-old female with history of hypothyroidism, hyperlipidemia, hypertension and acid reflux who presented to [facility] emergency room with acute right upper quadrant and epigastric tenderness onset at 0310 the morning of admission. The patient stated that the pain was a 9-10 out of 10 and associated with nausea. Patient had elevated lipase of 90 and was admitted to the hospitalist service for further evaluation and treatment. # Acute gastric abdominal pain, Pancreatitis versus duodenitis, POA, active -Patient describing 9-10 out of 10 acute right upper quadrant and epigastric abdominal pain onset 0310 this morning. -Patient had upper endoscopy done 10/13/[address]Abou Minor for failing PPI therapy. Impression was upper endoscopy to second part of the duodenum, a 3 cm hiatal hernia was seen, irregular squamocolumnar junction was biopsied, -Vital signs in the ED: Temperature 36.2, pulse 85, story rate 20, blood pressure 128/76 with a map of 93, pulse oximetry 97% on room air -CT abdomen and pelvis showed: Mild mesenteric fat stranding adjacent to the uncinate process of the pancreas and 3rd portion of the duodenum may reflect a mild pancreatitis or duodenitis. Recommend correlation clinically including with laboratory values. No evidence of associated fluid collections or free air. -Ultrasound abdomen showed: 1. No evidence of cholelithiasis or cholecystitis. Increased hepatic echogenicity compatible with steatosis. -Physical exam findings significant for a Acosta's point consistent with acute pancreatitis located at the right costal chondral junction of rib 9. -[place] II score (7). A score of 2 or > in any category = organ failure. -Patient does not meet sepsis criteria, she is not febrile, heart rate is less than 90, blood pressure is 128/76, respiratory rate is 20, temperature is 36.2, however patient does have a elevated white blood cell count of 20 -IV Fluids normal saline at 200 mL per hour -Patient's current pain is 3 out of 10 on pain medication in ED. Patient states that her pain was 9-10 out of 10 this morning -IV Dilaudid 0.5-1 mg every 4 hours when necessary. We will oral Percocet at this time for improved pain control. -DVT prophylaxis with subcutaneous heparin every 8 hours -We will change patient from nothing by mouth to clear liquid diet for now. -Continue Protonix 40 mg IV every 12 hours -ESR and CRP ordered -Of note patient is scheduled for swallow study on Thursday at this facility. This was ordered by her PCP Babita Irving. -I have consulted Dr. Menon of gastroenterology to evaluate the patient in a.m. as patient may have a duodenal ulcer that is irritating the pancreas and this could be very serious situation. # Leukocytosis present on admission, -WBC improved -Likely secondary to above, we will continue to monitor -We will order pro calcitonin -Ordered lactic acid levels which have now normalized. # Elevated lipase, present on admission, active - Lipase 90, likely secondary to acute pancreatitis versus duodenitis, or both. # Elevated glucose, POA, active -Glucose 138 -Continue to monitor # Hypothyroidism. -Continue home medication levothyroxine # Gastroesophageal reflux disease. -Hold home medication esomeprazole -IV Protonix 40 mg daily ordered # Anxiety/Depression -We will hold home medication dose Loxitane 90 mg for now # Migraines -not since October 2015 -We will hold home medication magnesium -Obstructive sleep apnea or CPAP at home -Family to bring in CPAP mask # Hyperlipidemia -Hold medication atorvastatin # Hypertension -We will continue chlorthalidone 25 mg daily -We will continue lisinopril 10 mg twice a day Disposition: Admitted to observation, secondary to severity of presenting symptoms, treatment plan, complexity of clinical work up, and risk of adverse events. CODE STATUS: Full code PCP: Babita Irving DVT PE prophylaxis: SCD's/Enoxiparin/SubQ heparin Q8H Contact: Tita patient's daughter [phone] Filemon patient's through [facility] [phone] Pain Evaluation: Adequate Pain Control VTE Prophylaxis: Sub-Q Heparin (Unfractionated) VTE Mechanical Devices: Intermittant Pneumatic CD Resuscitation Status: CPR: Attempt Resuscitation JosrSlava MD Oct 07, 2016 21:27 Resuscitation Status: CPR: Attempt Resuscitation ScrogginsSlava MD Oct 07, 2016 21:27
[2016-10-07] MEDS: Pantoprazole 4 mg/mL 10 mL Inj IVPUSH SCH (21:36)
[2016-10-07] MEDS: DULoxetine 30 mg DR Capsule PO SCH (21:37)
[2016-10-08] VITALS (10 sets, daily range): BP systolic 91–118; BP diastolic 54–62; PULSE 63–80; RESP 16; O2SAT 93–99
--- NOTE | 2016-10-08 00:05 | NUR ---
Admit pt arrived to room 240-1 approximately at 2240 per gurney, accompanied by [employer]. and family at the bedside. pt transferred self to bed, pt alert/oriented x4, IV on left arm saline locked at this time. pt reported tingling/burning on left side extremities. arm strength is the same except left arm is little bit slower. no tongue deviation or facial drooping. on arrival pt was told he will have roommate. pt told this RN if he is going to have roommate, he wants to go home AMA. Talked to charge nurse, and decided to left the pt with private room. Oriented pt to room. Admission is done by this RN, and med.rec. is done by admit RN. call light within reach. will continue to monitor. Addendum: 10/08/16 at 0420 by MONY BRANCH RN WRONG Pt
[2016-10-08] MEDS: Heparin 5,000 Unit/mL Inj SUBQ SCH ×3 (01:25→17:12)
[2016-10-08] MEDS: oxyCODONE-Acetamin 5-325 mg Tablet PO PRN ×4 (02:39→21:26)
--- NOTE | 2016-10-08 04:28 | NUR ---
pain pt reported RUQ abdominal pain on rate of 3-5/10. Administered PRN Q4hr PO Percocet. pt report pain relief by resting in bed quietly and didn't voice pain afterward except she wants to take it around the clock to just keep pain down. Denies nausea. tolerated clear liquid diet. will continue to monitor.
[2016-10-08] MEDS: 0.9% NaCl + KCl 20 mEq/L 1,000 ML IV SCH ×2 (05:56→18:33)
[2016-10-08 06:46] LABS: BASOPHILS % (AUTO) 0.3 % (0-3); EOSINOPHILS % (AUTO) 2.6 % (0-5); Mean Corpuscular Volume 92.7 fL (81-100); NEUTROPHILS % (AUTO) 65.4 % (40-74); Platelet Count 310 bil/L (150-400)
[2016-10-08 07:22] LABS: Phosphorus 2.7 mg/dL (2.5-4.9)
[2016-10-08] MEDS: Pantoprazole 4 mg/mL 10 mL Inj IVPUSH SCH ×2 (09:30→17:11)
--- NOTE | 2016-10-08 11:05 | NUR ---
Social Work-readiness for discharge: Data:EMR Reviewed. Pt is on day 2 of hospitalization for pancreatitis per H&P. Pt is not medically stable anticipate tomorrow.Pt has been up independent in her room. Pt and agreeable. Pt's to provide transport home at discharge. SW will continue to follow. Assessment:Pt who is independent at baseline. Plan:Pt to discharge home when medically stable via POV. No anticipated discharge needs. SW will continue to follow. NAUN Alvarez
--- NOTE | 2016-10-08 12:21 | NUR ---
NPO Pt alert and oriented X3. Aware of plan of care. Pt to be scheduled for an EGD this afternoon. NPO. IV infusing. Up to bathroom with SBA to maneuver IV pole. Tele SR 70's.
--- NOTE | 2016-10-08 12:22 | NUR ---
Hypo-tension Pt has been hypotensive since early this morning. Her AM BP for me was 94/59. Chelsea levi and made aware. I held her Lisinopril and Chlorthalidone. Pt reported feeling a little bit dizzy, but did OK with SBA to the bathroom this afternoon. BP will continued to be monitored. Addendum: 10/08/16 at 1258 by TARUN GOINS RN Provider returned call in regards to hypotension. No new orders at this time. Continue to monitor and OK to withhold BP meds as needed.
--- NOTE | 2016-10-08 13:49 | PCM.CHPMED ---
Subjective Date of Service: Oct 08, 2016 Primary Physician: Admitting Physician: Renetta Melara DO Primary Care Physician: Babita Adair Attending Physician: Renetta Melara DO Chief Complaint: Chief Complaint: Epigastric abdominal pain History of Present Illness: GASTROENTEROLOGY CONSULTATION: Ms. Esperanza Chong is a 61 yo female with long history of GERD, obstructive sleep apnea on home CPAP, hypothyroidism, hypertension, and hyperlipidemia who presented to [facility] for worsening epigastric abdominal pain on 10/06/2016. Patient reports intermittent abdominal cramps for the last 2 days prior to admission. However, she woke up with severe epigastric pain that radiates to her back on 04/09. She also admits to associated nausea, but no vomiting, fever, chills, hematemesis, hematochezia, melena, diarrhea, or constipation. Patient reports that she has a history of "bleeding duodenal ulcer" that required an EGD when she was 21 years old. She has been on Nexium and has not had any similar symptoms since. Per record, patient had another EGD done on 10/13/[address] Frank that showed normal duodenum, a 3 cm hiatal hernia, irregular squamocolumnar junction that was biopsied. In the last 3 months, patient reports worsening acid reflux with lying down at night. She admits to occasional vomiting and aspiration while lying down. Her PCP ordered a Barium swallow that is scheduled to be today 10/08. Besides the Nexium, she is not taking any other medication for GERD. She denies taking NSAIDs on the regular basis, but admits to drinking 2 cups of coffee in the morning, some tea, and spicy/fatty diet. Patient reports to have a normal colonoscopy in her 50s. She denies alcohol, tobacco, or drug use. Her abdominal pain has improved since she got to the hospital. On admission, patient was found to have leukocytosis up to 20.2 that has been trending down. H/H trending down, currently at 10.7/34.2. LFTs within normal limit. Lipased was initially elevated to 90 on 10/06 but decreased to 34 today. Ultrasound abdomen showed no evidence of cholelithiasis or cholecystitis. Increased hepatic echogenicity compatible with steatosis. CT abdomen and pelvis showed mild mesenteric fat stranding adjacent to the uncinate process of the pancreas and 3rd portion of the duodenum may reflect a mild pancreatitis or duodenitis. No evidence of associated fluid collections or free air. Gastroenterology service was consulted for possible endoscopy to rule out duodenitis or duodenal ulcer. Review of Systems: Constitutional: Denies: Chills, Fever, Malaise, Weakness Head: Normal Eyes: Denies: Blurred Vision, Double Vision ENT: Denies: Dysphagia, Hoarseness, Ulcers/Sores in Mouth Cardiovascular: Denies: Chest Pain, Edema, Irregular Heart Rate, Palpitations Respiratory: Denies: Cough, Cough with bloody sputum, SOB with Exertion, Shortness of Breath Gastrointestinal: Reports: Abdominal Pain, Change in Appetite, Heartburn, Nausea, Denies: Black tarry stools, Blood in stool (red), Constipation, Diarrhea, Vomiting Genitourinary: Reports: No burning or pain with urination, Denies: Change in Frequency, Dysuria, Hematuria, Nocturia Neurological: Denies: Change in Speech, Confusion, Dizziness, Localized Weakness, Numbness, Somnolence PMH Past Medical History PMH Hypothyroidism. Gastroesophageal reflux disease. Normal Myocardial perfusion study in June 2012 Anxiety/Depression Migraines not active since October 2015 Obstructive sleep apnea or CPAP at home Hyperlipidemia Hypertension Obesity Genital herpes Basal cell carcinoma the left eyelid Bedside Blood Glucose: 126 Surgical History C6-7 cervical spine surgery. Sinus surgeries x2. 1985 Breast reduction surgery. Basal cell carcinoma removed from her eyelid and he 93 Vaginal surgery Reports: Total vaginal Hysterectomy 1983 Home Medications Aspirin (Aspir 81) 81 Mg Tablet.dr 81 MG PO DAILY Atorvastatin (Lipitor) 20 Mg Tablet 20 MG PO HS Chlorthalidone (Chlorthalidone) 25 Mg Tablet 25 MG PO DAILY Duloxetine (Cymbalta) 90 MG PO PM Take a 60 mg and 30 mg pill together Esomeprazole Magnesium (Nexium) 20 Mg Capsule.dr 40 MG PO TWICE A DAY Levothyroxine (Levothyroxine) 50 Mcg Tablet 50 MCG PO DAILY Magnesium Oxide (Magnesium) 500 MG PO EVERY OTHER DAY history of migraines [place]-3 Fatty Acids/Fish Oil ([place] 3 Fish Oil Softgel) 1 Each Capsule.dr 1 EACH PO DAILY Risperidone (Risperidone) 0.25 Mg Tablet 1-4 TAB PO HS Lisinopril 10 mg twice a day PRN Lorazepam (Lorazepam) 0.5 Mg Tablet 0.5 MG PO HS PRN PRN For Insomnia Antacid 750 mg- 80 mg takes 1-2 when necessary Multivitamin (Multi-Vitamin Daily) 1 Each Tablet 1 EACH PO Famciclovir 500 mg when needed every 8 hours 5 days Allergies: Coded Allergies: No Known Allergies (Unverified Allergy, Unknown, 10/06/16) Uncoded Allergies: " SOMETHING GAVE ME HIVES" (Allergy, Unknown, 08/12/14) Family History Family History Mom with hypertension and coronary artery disease Dad with coronary artery disease Aunt with hypertension, hyperlipidemia, diabetes mellitus Sister of metastatic sarcoma that required colon resection Social History Hx Alcohol Use: Yes ("occasionally")Hx Substance Use: NoHx Tobacco Use: Yes Smoking Status: Former Smoker Living Arrangement: with Family Exam Vital Signs Vital Sign - Last Date Time Temp Pulse Resp B/P Pulse Ox O2 Delivery O2 Flow Rate FiO2 10/08/16 12:27 63 10/08/16 09:30 CPAP/BIPAP 10/08/16 09:26 37.1 16 94/59 94 Intake and Output 10/07/16 10/07/16 10/08/16 Cumulative From/Thru 15:00 23:00 07:00 10/06/16 16:09 - 10/08/16 06:41 Intake Total 1352 ml 1862 ml 1888 ml 6102 ml Output Total 1800 ml 1350 ml 3725 ml Balance 1352 ml 62 ml 538 ml 2377 ml Intake Oral 360 ml 300 ml 660 ml IV Total 1352 ml 1502 ml 1588 ml 5442 ml Output Urine Total 1800 ml 1350 ml 3725 ml # Voids 3 3 Additional Information: General: Patient is alert and oriented 3, in no acute distress, resting comfortably in bed, speaking full sentences, HEENT: NC/AT, PERRLA, EOMI. Mucosal membrane dry. Neck: soft, supple, no adenopathy, no JVD, no masses, no thyromegaly. Lungs: clear to auscultation all slaazar, no wheezes, no rhonchi, no crackles, no adventitious lung sounds, no use of accessory muscles of respiration, good air movement, good respiratory effort. Heart: Regular rate and rhythm, no murmur, S1-S2 present, no rub, no click, no distant heart sounds, Abdomen: Obese, soft, non-distended. Mild tenderness to palpation in the right upper quadrant and epigastric areas. There is no rebound tenderness or guarding. There is no organomegaly or masses were appreciated. Extremities: no edema, cyanosis, or clubbing. Neurologic: Grossly neurologically intact, speaking in full sentences, no focal neurological signs Skin: Warm and dry, no rashes, no petechiae Psychiatric: Mood and affect are congruent and appropriate. Lab and Diagnostics Result Diagram: 10/08/16 0620 10/08/16 0620 X-Rays, CTs and MRIs PROCEDURE: US ABDOMEN IMPRESSION: 1. No evidence of cholelithiasis or cholecystitis. 2. Increased hepatic echogenicity compatible with steatosis. Dictated by: Yoan Garcia M.D. on 10/06/2016 at 19:22 Approved by: Yoan Garcia M.D. on 10/06/2016 at 19:24 PROCEDURE: CT ABDOMEN AND PELVIS WITH CONTRAST IMPRESSION: 1. Mild mesenteric fat stranding adjacent to the uncinate process of the pancreas and 3rd portion of the duodenum may reflect a mild pancreatitis or duodenitis. Recommend correlation clinically including with laboratory values. No evidence of associated fluid collections or free air. Dictated by: Yoan Garcia M.D. on 10/06/2016 at 18:43 Approved by: Yoan Garcia M.D. on 10/06/2016 at 18:51 Assessment & Plan Assessment 61 yo female with long history of GERD, obstructive sleep apnea on home CPAP, hypothyroidism, hypertension, and hyperlipidemia who presented to [facility] for new onset, worsening epigastric abdominal pain on 10/06/2016. Gastroenterology was consulted to evaluate for possible duodenal ulcer. Imaging: -Ultrasound abdomen: No evidence of cholelithiasis or cholecystitis. Increased hepatic echogenicity compatible with steatosis. -CT abdomen and pelvis: Mild mesenteric fat stranding adjacent to the uncinate process of the pancreas and 3rd portion of the duodenum may reflect a mild pancreatitis or duodenitis. Recommend correlation clinically including with laboratory values. No evidence of associated fluid collections or free air. -Past EGD done by for failing PPI therapy in 10/13/2003: a 3 cm hiatal hernia was seen, irregular squamocolumnar junction was biopsied, Assessments: 1. Epigastric abdominal pain, present on admission, active. 2. GERD, chronic, uncontrolled. 3. Normocytic anemia, not present on admission, active. Plans: - CT abd and pelvis was reviewed with radiology and confirmed no fluid collections or free air and the mild mesenteric fat stranding is not significant for pancreatitis. - The worsening epigastric pain is unlikely due to pancreatitis. DDx include but not limited to uncontrolled GERD, hiatal hernia, peptic ulcer disease, gastritis/gastropathy, or dyspepsia. - Risks of an upper endoscopy were discussed with the patient and she agreed to proceed. Plan for EGD sometime this evening. - Switch diet to NPO. - Continue Protonix 40mg IV BID. - Continue to monitor CBC. No signs or symptoms of active bleeding. - GERD behavioral modification discussed with the patient: - Avoid fatty, acidic, spicy, large meals - Do not lie down after meals - Decrease caffeine intake - Avoid carbonated and alcoholic drinks - Weight reduction - Avoid NSAIDs such as Ibuprofen, Aleve, Advil, Naproxen, etc. - Check TSH/Free T4. Other medical issues will be managed by the hospitalist team. Thank you Dr. Logan Ovalles for the consultation. Please contact us for any question or concern. I have seen and examined the pt with the resident and agree with above. Problems: Pain Evaluation: Adequate Pain Control GI Prophylaxis: Proton Pump Inhibitor VTE Prophylaxis: Sub-Q Heparin (Unfractionated) VTE Mechanical Devices: Intermittant Pneumatic CD Resuscitation Status: CPR: Attempt Resuscitation Teja Guerra DO Oct 08, 2016 13:49 Douglas Menon MD Oct 10, 2016 11:45
--- NOTE | 2016-10-08 15:27 | PCM.HPANE ---
Patient Data Date of Service: Oct 08, 2016 Surgeon Admitting Provider:Renetta Melara DO Attending Provider:Renetta Melara DO Primary Care Physician:Babita Adair Other Provider: Reason for Visit Pancreatitis Ht/WT & BMI Height (Feet): 5 Height (Inches): 3.00 Weight (Kilograms): 91.800 Body Mass Index 35.86 Allergies Coded Allergies: No Known Allergies (Unverified Allergy, Unknown, 10/06/16) Uncoded Allergies: " SOMETHING GAVE ME HIVES" (Allergy, Unknown, 08/12/14) Past Anesthesia History Anesthesia History: Positive for:: Abnormal Airway, Difficult Intubation, Fam Anesthesia Reaction (OLDER SISTER BROKE OUT IN HIVES), Denies:: Anesthesia Reactions, Fam Malignant Hypertherm, Malignant Hyperthermia Diabetes History Hx Diabetes?: No Current Bedside Blood Glucose: 126 MRSA MRSA: No Medications Hypertension Medication: Yes Home Meds Incl Beta Emanuel: No Active Scripts Chlorthalidone 25 Mg Cvturt96 Mg PO DAILY #30 TABLET Prov:Maegan Pinedo DO 10/23/14 Atorvastatin (Lipitor)20 Mg Rccivr89 Mg PO HS #30 TABLET Prov:Azra Martinez DO 10/22/14 Reported Medications Magnesium Oxide (Magnesium)500 Mg Qtdwskw424 Mg PO HS 10/06/16 Aspirin Chew 81 Mg Chew81 Mg PO HS Ref 0 10/06/16 Simethicone (Gas-X)80 Mg Bdrpaz65-460 Mg PO DAILY PRN GAS 10/06/16 Folic Acid/Multivits-Min/Lut (Multi-Vitamin Gummies)1 Each Tab.chew1 Each PO HS 10/06/16 Famciclovir 500 Mg Pgpnmj830 Mg PO TID PRN HERPES BREAKOUT Ref 0 10/06/16 Lisinopril 10 Mg Ojhkhh67 Mg PO BID 30 Days Ref 0 10/06/16 [place]-3 Fatty Acids/Fish Oil ([place] 3 Fish Oil Softgel)1 Each Capsule.dr1 Each PO HS 10/20/14 Lorazepam 0.5 Mg Tablet0.5 Mg PO Q8H PRN For Anxiety Ref 0 10/20/14 Levothyroxine 50 Mcg Eyrwwz78 Mcg PO QAM 30 Days Ref 0 08/17/14 Duloxetine (Cymbalta)60 Mg Capsule.dr90 Mg PO HS Ref 0 Take a 60 mg and 30 mg pill together 08/12/14 Esomeprazole Magnesium (Nexium)20 Mg Capsule.dr40 Mg PO BIDWM 30 Days Ref 0 08/12/14 Discontinued Reported Medications Risperidone 0.25 Mg Tablet1-4 Tab PO HS #60 10/23/15 Multivitamin (Multi-Vitamin Daily)1 Each Tablet1 Each PO 10/20/14 Verapamil ER 180 Mg Tablet.er180 Mg PO DAILY 30 Days Ref 0 10/20/14 Magnesium Oxide (Magnesium)250 Mg Cnelba533 Mg PO DAILY 10/20/14 Aspirin (Aspir 81)81 Mg Tablet.dr81 Mg PO HS Ref 0 08/12/14 History History of ENT Problems?: No HEENT History: Positive for:: Abnormal Airway Difficult Intubation (h/o c-spine fusion) Sinus Problem (SURGERIES 2X, WINDOWS IN) Denies:: Dysphagia Hearing Problem TMJ Hx of Heart Problems?: Yes Cardiovascular History: Positive for:: Hypertension (hyperlipidemia) Denies:: Congestive Heart Failure Hx of Respiratory Problem?: Yes Respiratory History: Positive for:: Pneumonia (" a while ago.') Use of C-PAP Machine Denies:: Asthma COPD Chest Surgery Dyspnea Tuberculosis Hx Neurologic Problems?: Yes Neurological History: Positive for:: Headaches Hx of GI Problems?: Yes Gastrointestinal History: Positive for:: Gastroesphageal Reflux Gastrointestinal Bleeding (long time ago) Heartburn Hx of Problems?: Yes Genitourinary History: Positive for:: Urinary Tract Infection (" many years ago") Female Hx: Denies:: Currently Endometriosis (s/p hysterectomy) Pelvic Inflammatory Problems with Breasts? Other Skin Pertinent History: redness on chest and neck area. pt state she has sensetive skin while she touches it. 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 Blood Transfuse Reaction Denies:: Blood Transfusions Hx Diabetes: NoBedside Blood Glucose: 126 Hx Alcohol Use: Yes ("occasionally")Hx Substance Use: No Smoking Status: Former Smoker Have You Smoked inLast 12 mo: YesApprox How Many Cigarettes/day: 1/2 PPD Stop/Bang Treated for Sleep Apnea?: Yes Do You Have a CPAP Machine?: Yes (family will bring in tonight) S-Snoring: Do You Snore Loudly: Yes T-Tired: feel tired, fatigued: No O-Obsered: Observed not breath: Yes P-Blood Pressure: treated: Yes B- Body Mass Index > 35 kg/m2: Yes A- Age over 50: Yes N- Neck Large Circumference: Yes G- Gender Male: No CHANELL Total Score: 6 CHANELL Risk Assessment: High Risk, =/>3 Yes CHANELL Category 2: Yes Risk Assessment Category Category 1A: Patient has history of documented sleep apnea, and HAS NOT received any narcotic, sedative or anesthesia administration during this stay. Category 1B: Patient has history of documented sleep apnea, and HAS received any narcotic , sedative or anesthesia administration during this stay Category 2: Patient has SUSPECTED Obstructive Sleep Apnea, and HAS received any narcotic , sedative or anesthesia administration during this stay. Category 3: Patient has SUSPECTED Obstructive Sleep Apnea and HAS NOT received narcotic, sedative or anesthesia administration during this stay. Category 4: Outpatient in Procedural Areas with known sleep apnea or who screen positive for High Risk via the STOP/BANG questionnaire. Exam Exam Vital Signs Vital Signs Date Time Temp Pulse Resp B/P Pulse Ox O2 Delivery O2 Flow Rate FiO2 10/08/16 12:27 63 10/08/16 09:30 CPAP/BIPAP 10/08/16 09:26 37.1 69 16 94/59 94 Room Air General Appearance: Alert, Oriented X3, Cooperative, No Acute Distress HEENT/AIRWAY: MP 2, Neck Movement (fair), Mouth Opening (3 fb), Other (tmd 3 fb ) Lungs: Clear to Auscultation, Normal Air Movement Heart: Exam Unremarkable, Regular Rate/Rhythm, No Murmurs/Rubs/Gallops Meds/Labs/Diagnostics Admission Meds Current Medications Pantoprazole (Protonix Inj) 40 mg BIDAC IVPUSH Last administered on 10/08/16t 09:30; Start 10/07/16 at 21:20 Duloxetine HCl (Cymbalta) 60 mg HS PO Last administered on 10/07/16t 21:37; Start 10/07/16 at 21:30 Bedside Blood Glucose: 126 Labs Test 10/06/16 16:18 10/06/16 17:05 10/06/16 17:24 10/06/16 22:20 Hemoglobin A1c 7.0% (4.8-5.6) Hold Urine Received (Received) Hold Cooley Top Tube Received (Received) Urine Color Yellow (YELLOW) Urine Appearance Clear (CLEAR,HAZY) Urine pH 6.0 (5.0-8.0) Urine Specific Henry 1.020 (1.003-1.035) Urine Protein Negativemg/dL (NEG,TRACE) Urine Glucose (UA) Negativemg/dL (NEGATIVE) Urine Ketones Negativemg/dL (NEGATIVE) Urine Occult Blood Trace (NEGATIVE) Urine Nitrite Negative (NEGATIVE) Urine Bilirubin Negative (NEGATIVE) Urine Urobilinogen Normalmg/dL (NORMAL) Urine Leukocyte Esterase Moderate (NEGATIVE) Urine RBC 0-2/hpf (0-2) Urine WBC 0-5/hpf (0-5) Urine Epithelial Cells Few/hpf (NONE-MOD) Urine Crystals None seen (NONE SEEN) Urine Bacteria Few/hpf (NONE-FEW) Urine Hyaline Casts None/lpf (NONE) Urine Granular Casts None seen (NONE SEEN) Urine Waxy Casts None seen (NONE SEEN) Urine Red Blood Cell Casts None seen (NONE SEEN) Urine White Blood Cell Casts None seen (NONE SEEN) Urine Mucus None seen (None Seen) Urine Trichomonas None seen (NONE SEEN) Urine Yeast None (NONE SEEN) Urinalysis Comment None Urine Culture Reflexed Indicated Erythrocyte Sedimentation Rate 32mm/hr (0-40) C-Reactive Protein 3.9mg/dL (0.0-0.5) Test 10/07/16 03:40 10/08/16 06:20 Lactic Acid Level 1.1mmol/L (0.4-2.0) Triglycerides Level 216mg/dL (0-149) Cholesterol Level 150mg/dL (100-199) LDL Cholesterol, Calculated 71.800mg/dL (0-99) VLDL Cholesterol 43.200mg/dL HDL Cholesterol 35mg/dL (>39) Cholesterol/HDL Ratio 4.29 (0.0-4.4) White Blood Count 12.2th/mm3 (3.8-10.1) Red Blood Count 3.69mil/mm3 (3.90-5.20) Hemoglobin 10.7g/dL (12.0-15.6) Hematocrit 34.2% (35.0-46.0) Mean Corpuscular Volume 92.7fL (81-100) Mean Corpuscular Hemoglobin 29.0pg (27.0-35.0) Mean Corpuscular Hemoglobin Concent 31.3% (32.0-37.0) Red Cell Distribution Width 14.4% (12.3-15.4) Platelet Count 310bil/L (150-400) Neutrophils (%) (Auto) 65.4% (40-74) Lymphocytes (%) (Auto) 22.5% (14-46) Monocytes (%) (Auto) 9.0% (4-12) Eosinophils (%) (Auto) 2.6% (0-5) Basophils (%) (Auto) 0.3% (0-3) Sodium Level 139mEq/L (134-144) Potassium Level 4.0mEq/L (3.5-5.2) Chloride Level 102mEq/L (97-108) Carbon Dioxide Level 23mmol/L (18-29) Blood Urea Nitrogen 8mg/dL (8-27) Creatinine 0.86mg/dL (0.57-1.00) Estimat Glomerular Filtration Rate 95mL/min (>59) Glucose Level 108mg/dL (60-99) Calcium Level 8.1mg/dL (8.5-10.1) Phosphorus Level 2.7mg/dL (2.5-4.9) Magnesium Level 2.0mg/dL (1.6-2.6) Total Bilirubin 0.4mg/dL (0.0-1.2) Aspartate Amino Transf (AST/SGOT) 17U/L (0-50) Alanine Aminotransferase (ALT/SGPT) 12U/L (0-32) Alkaline Phosphatase 65U/L (25-165) Total Protein 5.9g/dL (6.4-8.4) Albumin 3.3g/dL (3.4-5.0) Lipase 34U/L (13-60) Procalcitonin 0.04ng/mL (0.00-0.08) Plan Impression Patient chart reviewed, patient interviewed and anesthestic plan with risks, benefits, and alternatives discussed, and informed consent obtained. ASA Physical Status: ASA2 Mod Systemic Disease Anesthetic Plan: MAC Bene/Risks/Altern/Consents: Yes HP Complete Prior to Induction: Yes Kevin Gee MD Oct 08, 2016 15:27
--- NOTE | 2016-10-08 15:58 | NUR ---
Pt off floor to Endo
--- NOTE | 2016-10-08 16:19 | PCM.ENDEGD ---
EGD Date of Service: Oct 08, 2016 Physician Renetta Melara DO Pre Procedure Diagnosis: Abdominal pain duodenitis Post Procedure Dx & Findings: Esophagitis hiatal hernia Procedure Esophagogastroduodenoscopy PROCEDURE IN DETAIL: After proper sedation, Olympus video endoscope was inserted into patient's mouth and esophagus was successfully intubated. Scope introduced esophagus. Esophagus showed normal shiny whitish mucosa consistent with squamous cell component. Z line was irregular at 35 cm from the incisors. There was a spot of irritation and edema with redness. This was biopsied. Stomach further events to the stomach. Stomach showed normal shiny mucosa with normal appearing rugae folds without any ulcer mass erosion. Cardia fundus body antrum pylorus were all visualized. Retroflexion was done. Stomach was easily inflated and deflatable using air. Scope further events to the distal duodenum. Duodenum revealed normal villous structures with normal appearing folds without any mass ulcer erosion. We took random biopsies from the distal duodenum to the proximal duodenum. We got about 5 samples. Impression There is no evidence of duodenal inflammation Mild esophagitis Recommendation Clear liquid diet DC IV Protonix Protonix 20 mg by mouth twice a day Follow up in GI clinic 6 weeks MRI with and without contrast of the pancreas and MRCP in 1 month to review these results when I see her in clinic. Presedation Assessment Risks and Benefits Informed consent was obtained from the patient after all risks and benefits including but not limited to drug reaction, infection, pain, bleeding, perforation, as well as alternatives were discussed. Patient monitoring Continuous pulse oximetry, cardiac monitoring, blood pressure monitoring, IV access, and oxygen at 2L per nasal cannula. Complications There were no periprocedural complications identified. Post Procedure Plan Post Procedure Recommendations 1. Restrict activities today. 2. Resume normal activities in the morning. 3. Resume medications. 4. GERD behavioral modification: - Avoid fatty, acidic, spicy, large meals - Do not lie down after meals - Do not eat or drink anything for at least 2 1/2 hours before going to bed at night - Discontinue tobacco and alcohol - Decrease or avoid caffeine - Avoid chocolate and mints - Decrease weight - Avoid aspirin and non steroidal anti-inflammatory agents (NSAID) such as Aleve, Advil, Mobic, Naproxen, Ibuprofen, etc 5. Add proton pump inhibitor. Take 30 minutes before 1st meal of the day. 6. Patient informed of normal post procedure side effects as bloating, drowsiness, blood streaking in the stool 7. If gastric biopsy reveal H.pylori, continue with appropriate treatment 8. If small bowel biopsy reveals celiac, continue with appropriate treatment 9. Please don't hesitate to call me with any questions Douglas Menon MD Oct 08, 2016 16:19
--- NOTE | 2016-10-08 16:36 | PCM.ANEP2 ---
Post Anesthesia Evaluation ASA/CMS Post Anesthesia Date of Service: Oct 08, 2016 VS in Patient's Normal Range?: Yes Resp Stable; Airway Patent?: Yes CV Function & Hydration Stable: Yes Mental Status Recovered?: Yes Pain control Satisfactory?: Yes N/V Control Satisfactory?: Yes Kevin Gee MD Oct 08, 2016 16:36
--- NOTE | 2016-10-08 17:12 | NUR ---
spiritual care: pt request pt's birthday tomorrow.she's expecting many visitors conversational visit. pt shared her relief at new diagnosis after many months of feeling poorly. Pt described some of her experiences seeking medical help and current medical situation. 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 Large supportive family, dtr in room. pt rastafari and appreciated prayer.
--- NOTE | 2016-10-08 18:42 | NUR ---
EGD completed patient returned from [facility] requesting chicken broth. patient tolerated well. reported 4/10 abdomen pain that radiated to back. percocet effective for pain, bringing pain to 0/10. continue to monitor.
[2016-10-08] MEDS: DULoxetine 30 mg DR Capsule PO SCH (20:51)
[2016-10-08] MEDS ORDERED: Ketamine 10 mg/mL 20 mL Inj ONE (21:09)
[2016-10-08] MEDS ORDERED: fentaNYL-PF 50 mCg/mL 2 mL Inj ONE (21:09)
[2016-10-08] MEDS ORDERED: Propofol 10,000 mCg/mL 20 mL Inj ONE (21:09)
--- NOTE | 2016-10-08 23:34 | PCM.PNMED ---
Subjective Date of Service Oct 08, 2016 Subjective The patient was seen after her EGD. She was still somewhat somnolent. She is complaining of crampy abdominal pain. Exam Vital Signs Vital Sign - Last Date Time Temp Pulse Resp B/P Pulse Ox O2 Delivery O2 Flow Rate FiO2 10/08/16 21:27 CPAP/BIPAP 10/08/16 20:49 36.8 65 16 108/62 93 10/08/16 16:21 4 Intake and Output 10/07/16 10/07/16 10/08/16 Cumulative From/Thru 15:00 23:00 07:00 10/06/16 16:09 - 10/08/16 06:41 Intake Total 1352 ml 1862 ml 1888 ml 6102 ml Output Total 1800 ml 1350 ml 3725 ml Balance 1352 ml 62 ml 538 ml 2377 ml Intake Oral 360 ml 300 ml 660 ml IV Total 1352 ml 1502 ml 1588 ml 5442 ml Output Urine Total 1800 ml 1350 ml 3725 ml # Voids 3 3 Exam General: The patient is in no apparent distress laying supine in bed. She does complain of some crampy abdominal pain. HEENT: Head is atraumatic and normocephalic. Eyes: Pupils are equally round and reactive to light and accommodation. Extraocular muscles are intact. Sclera are white, anicteric. Subconjunctival mucosa is pink. Ears and nose are unremarkable. Oropharynx: There is no mucosal lesions, there is no thrush, there is no pharyngitis. Neck: Is supple, there are no nodes, or masses or tenderness. Chest: Is clear to auscultation and percussion. There are no rales, rhonchi, wheezes or rubs. Heart: Rate, rhythm is regular. There is no murmur, rub or gallop. Abdomen: Good bowel sounds are present. Abdomen is obese, soft, with nonspecific right upper quadrant and epigastric tenderness. There is no rebound tenderness. There is no organomegaly or masses were appreciated. Extremities: Are symmetrical and well perfused. There is no edema, there is no cellulitis, no rash. Neurologic: There are no focal neurological deficits. Cranial nerves II through XII are intact. There are no sensory or motor deficits. Psychiatric: Patients mood is calm and shows no sign of agitation. Genital: Deferred Rectal: Deferred Lab and Diagnostics Result Diagram: 10/08/1661910/08/16619 Microbiology Name: SHRUTHI HUNT Serena Age/Sex: 61/F Attend Dr: Renetta Melara Acct: [id number] Unit: [id number] Status: ADM Derek Location: [facility] 249-2 Re10/06/16 Disch: Specimen: [id number] Collected: 10/06/16 Status: COMP Req#: [id number] Received: 10/06/16 Source: URINE CC Sp Desc : PP Miguel Dr: García Cote MD Ordered: URINE CULT Procedure Result Verified Site Microbiology MARCOS CULT URINE Final 10/08/16-0834 Organism 1 MIXED UROGENITAL MANJU U COLONY COUNT/QUANTITY 10-25,000 CFU/ml X-Rays, CTs and MRIs Date of Service: 10/06/161818 PROCEDURE: CT ABDOMEN AND PELVIS WITH CONTRAST INDICATIONS: Right upper quadrant abdominal pain. TECHNIQUE: After the administration of oral and intravenous contrast, 5 mm thick sections acquired from the diaphragms to the symphysis. 5 mm thick coronal and sagittal reformats were performed. For radiation dose reduction, the following was used : automated exposure control, adjustment of mA and/or kV according to patient size. COMPARISON: None. FINDINGS: Image quality: Excellent. ABDOMEN: Lung bases: There is mild dependent atelectasis. A small hiatal hernia is present. Heart size is normal. Solid organs: Liver and spleen are normal in size and enhancement. Gallbladder appears within normal limits without calcified gallstones or wall thickening. Biliary system is non-dilated. No adrenal nodules. Kidneys are normal in size and enhancement, without hydronephrosis. There is mild fat stranding within the mesenteric root along the uncinate process of the pancreas and adjacent to the 3rd portion of duodenum. Peritoneum and bowel: Stomach, small bowel, and colon loops are normal in caliber and wall thickness. No free fluid or air. Nodes and vessels: No retroperitoneal or mesenteric adenopathy. Aorta and inferior vena cava are normal in caliber. Miscellaneous: No ventral hernias. PELVIS: Genitourinary: Bladder wall thickness is normal. Miscellaneous: No inguinal hernias or adenopathy. Bones: No suspicious bony lesions. No vertebral body compression fractures. IMPRESSION: 1. Mild mesenteric fat stranding adjacent to the uncinate process of the pancreas and 3rd portion of the duodenum may reflect a mild pancreatitis or duodenitis. Recommend correlation clinically including with laboratory values. No evidence of associated fluid collections or free air. Dictated by: Yoan Garcia M.D. on 10/06/2016 at 18:43 Approved by: Yoan Garcia M.D. on 10/06/2016 at 18:51 Additional Diagnostics Date of Service: 10/06/16 1720 PROCEDURE: US ABDOMEN INDICATIONS: ruq pain, suspect cholecystitis TECHNIQUE: Real-time scanning was performed of the abdominal and retroperitoneal organs, with image documentation. COMPARISON: [facility], CT, CT ABD PELVIS W CON, 10/06/2016, 18:34. FINDINGS: Liver: Liver is normal in size with increased cortical echogenicity and a coarse sonographic echotexture consistent with fatty infiltration. Gallbladder: No gallstones, gallbladder wall thickening, or pericholecystic fluid. Biliary ducts: Intrahepatic bile ducts are non-dilated. Extrahepatic bile duct caliber measures up to 4 mm. Normal is 6-7 mm or less in diameter, or 10 mm or less post-cholecystectomy. Pancreas: Visualized portions of the pancreas are sonographically normal. Spleen: Spleen is normal in size and homogeneous in echotexture. Kidneys: Right kidney measures 10.6 cm long; left kidney measures 11.1 cm long. No hydronephrosis. Aorta: Visualized aorta is normal in caliber at less than 3 cm. Iliacs: Proximal common iliac arteries are normal in caliber at less than 2.5 cm. IVC: Intrahepatic inferior vena cava is patent. Miscellaneous: No free abdominal fluid. IMPRESSION: 1. No evidence of cholelithiasis or cholecystitis. 2. Increased hepatic echogenicity compatible with steatosis. Dictated by: Yoan Garcia M.D. on 10/06/2016 at 19:22 Approved by: Yoan Garcia M.D. on 10/06/2016 at 19:24 Assessment & Plan This is a pleasant 61-year-old female with history of hypothyroidism, hyperlipidemia, hypertension and acid reflux who presented to [facility] emergency room with acute right upper quadrant and epigastric tenderness onset at 0310 the morning of admission. The patient stated that the pain was a 9-10 out of 10 and associated with nausea. Patient had elevated lipase of 90 and was admitted to the hospitalist service for further evaluation and treatment. # Acute gastric abdominal pain, Pancreatitis versus duodenitis, POA, active -Patient describing 9-10 out of 10 acute right upper quadrant and epigastric abdominal pain onset 0310 this morning. -Patient had upper endoscopy done 10/13/[address]Abou Minor for failing PPI therapy. Impression was upper endoscopy to second part of the duodenum, a 3 cm hiatal hernia was seen, irregular squamocolumnar junction was biopsied, -CT abdomen and pelvis showed: Mild mesenteric fat stranding adjacent to the uncinate process of the pancreas and 3rd portion of the duodenum may reflect a mild pancreatitis or duodenitis. Recommend correlation clinically including with laboratory values. No evidence of associated fluid collections or free air. -Ultrasound abdomen showed: 1. No evidence of cholelithiasis or cholecystitis. Increased hepatic echogenicity compatible with steatosis. -Physical exam findings significant for a Acosta's point consistent with acute pancreatitis located at the right costal chondral junction of rib 9. -Sheldon II score (7). A score of 2 or > in any category = organ failure. -Patient does not meet sepsis criteria, she is not febrile, heart rate is less than 90, blood pressure is 128/76, respiratory rate is 20, temperature is 36.2, however patient does have a elevated white blood cell count of 20 -IV Fluids normal saline at 200 mL per hour -Patient's current pain is 3 out of 10 on pain medication in ED. Patient states that her pain was 9-10 out of 10 this morning -IV Dilaudid 0.5-1 mg every 4 hours when necessary. We will oral Percocet at this time for improved pain control. -DVT prophylaxis with subcutaneous heparin every 8 hours -We will change patient from nothing by mouth to clear liquid diet for now. -Continue Protonix 40 mg IV every 12 hours -ESR and CRP ordered -Of note patient is scheduled for swallow study on Thursday at this facility. This was ordered by her PCP Babita Irving. -I have consulted Dr. Menon of gastroenterology took the patient for an EGD this morning and the findings are as follows: There was no duodenal inflammation and there is mild esophagitis. Biopsies were obtained. # Leukocytosis present on admission, -WBC improved -Likely secondary to above, we will continue to monitor -We will order pro calcitonin -Ordered lactic acid levels which have now normalized. # Elevated lipase, present on admission, active and improved - Lipase has normalized, likely secondary to acute pancreatitis. # Elevated glucose, POA, active -Glucose 138 -Continue to monitor # Hypothyroidism. -Continue home medication levothyroxine # Gastroesophageal reflux disease. -Hold home medication esomeprazole -IV Protonix 40 mg daily ordered # Anxiety/Depression -We will hold home medication dose Loxitane 90 mg for now # Migraines -not since October 2015 -We will hold home medication magnesium -Obstructive sleep apnea or CPAP at home -Family to bring in CPAP mask # Hyperlipidemia -Hold medication atorvastatin # Hypertension -We will continue chlorthalidone 25 mg daily -We will continue lisinopril 10 mg twice a day Disposition: Admitted to observation, secondary to severity of presenting symptoms, treatment plan, complexity of clinical work up, and risk of adverse events. CODE STATUS: Full code PCP: Babita Irving DVT PE prophylaxis: SCD's/Enoxiparin/SubQ heparin Q8H Contact: Tita patient's daughter [phone] [place] patient's through 6 are [phone] Pain Evaluation: Adequate Pain Control GI Prophylaxis: Proton Pump Inhibitor VTE Prophylaxis: Sub-Q Heparin (Unfractionated) VTE Mechanical Devices: Intermittant Pneumatic CD Resuscitation Status: CPR: Attempt Resuscitation [place] MD Oct 08, 2016 23:34
[2016-10-09] VITALS (8 sets, daily range): BP systolic 123–150; BP diastolic 70–90; PULSE 59–71; RESP 17–20; O2SAT 95–97
[2016-10-09] MEDS: Heparin 5,000 Unit/mL Inj SUBQ SCH ×3 (01:03→16:21)
[2016-10-09] MEDS: 0.9% NaCl + KCl 20 mEq/L 1,000 ML IV SCH ×2 (02:07→10:11)
[2016-10-09] MEDS: oxyCODONE-Acetamin 5-325 mg Tablet PO PRN ×2 (04:53→11:58)
--- NOTE | 2016-10-09 06:19 | NUR ---
Pain Pt had RUQ pain that radiated to the back throughout the night. Relieved with Percocet.
[2016-10-09 06:42] LABS: BASOPHILS % (AUTO) 0.2 % (0-3); EOSINOPHILS % (AUTO) 2.8 % (0-5); MONOCYTES % (AUTO) 7.6 % (4-12); Mean Corpuscular Hemoglobin 29.7 pg (27.0-35.0); Mean Corpuscular Volume 91.8 fL (81-100); NEUTROPHILS % (AUTO) 63.5 % (40-74); Platelet Count 277 bil/L (150-400)
[2016-10-09 07:11] LABS: Magnesium 1.8 mg/dL (1.6-2.6)
[2016-10-09] MEDS: Pantoprazole 20 mg ER24 Tablet PO SCH ×2 (08:32→16:21)
--- NOTE | 2016-10-09 14:43 | NUR ---
NUTRITION ASSESSMENT: ASSESS: 61YO F s/p EGD showing esophagitis, biopsies obtained. Previously NPOx3, now with diet advanced and good po intake. PMHX: GERD,hypothyroid,HTN,Hyperlipidemia DIET: Heart Healthy. PO 75%; Prev NPOx3 LABS: Alb 3.1 MEDS: Reviewed GI: No BM Recorded WEIGHT: 91.8kg BMI: 35.0 = Obese EST.NEEDS: OBESITY Kcal: 6830-8193 Pro: 60-80g NUTRITION DIAGNOSIS: (1) Inadequate oral intake related to altered GI tract function as evidenced by previously [id number]; currently with diet advanced. INTERVENTION: (1) Continue to monitor po intake/diet tolerance. MONITOR/EVALUATE: Continue to monitor po intake/diet tolerance. F/U per moderate risk.
--- NOTE | 2016-10-09 16:09 | NUR ---
pain/intake Pt controlled with 1 percocet. reports pain in mid upper abd. advancing diet - tolerated [place] for lunch stated at first felt really heavy then after a short while tolerated it. MD notified, he reports possible DC later today, pt wanting to DC.
--- NOTE | 2016-10-09 17:06 | PCM.PNMED ---
Subjective Date of Service Oct 09, 2016 Subjective GASTROENTEROLOGY PROGRESS NOTE: The patient states that her abdominal pain has significantly improved. She tolerates the general diet well and has no further nausea or vomiting. She notes that stress seems to aggravate her abdominal pain as her friends were in here earlier and their discussion brought on the abdominal pain. Patient has no other complaint at this point and feels ready to go home. Exam Vital Signs Vital Sign - Last Date Time Temp Pulse Resp B/P Pulse Ox O2 Delivery O2 Flow Rate FiO2 10/09/16 16:30 36.7 65 20 135/74 97 Room Air 10/08/16 16:21 4 Intake and Output 10/08/16 10/08/16 10/09/16 Cumulative From/Thru 15:00 23:00 07:00 10/06/16 16:09 - 10/09/16 06:28 Intake Total 914 ml 3130 ml 47982 ml Output Total 1400 ml 5125 ml Balance 914 ml 1730 ml 5021 ml Intake Oral 800 ml 1460 ml IV Total 914 ml 2330 ml 8686 ml Output Urine Total 1400 ml 5125 ml # Voids 4 7 Exam General: Patient is alert and oriented 3, in no acute distress, resting comfortably in bed, speaking full sentences, HEENT: NC/AT, PERRLA, EOMI. Mucosal membrane dry. Neck: soft, supple, no adenopathy, no JVD, no masses, no thyromegaly. Lungs: clear to auscultation all salazar, no wheezes, no rhonchi, no crackles, no adventitious lung sounds, no use of accessory muscles of respiration, good air movement, good respiratory effort. Heart: Regular rate and rhythm, no murmur, S1-S2 present, no rub, no click, no distant heart sounds, Abdomen: Obese, soft, non-distended. No tenderness to palpation. No rebound tenderness or guarding. No organomegaly or masses were appreciated. Extremities: no edema, cyanosis, or clubbing. Neurologic: Grossly neurologically intact, speaking in full sentences, no focal neurological signs Skin: Warm and dry, no rashes, no petechiae Psychiatric: Mood and affect are congruent and appropriate. IVs and Medications Medications Reviewed: Medications were reviewed in detail Lab and Diagnostics Result Diagram: 10/09/1660410/09/16604 Microbiology Name: SHRUTHI HUNT Age/Sex: 61/F Attend Dr: Renetta Melara Acct: [id number] Unit: [id number] Status: ADM [place] [facility] [place]10[place] Disch: Specimen: [id number] Collected: 10/06/16 Status: COMP Req#: [id number] Received: 10/06/16 Source: URINE OCTAVIO Mcgill Desc : ADELA Rivera Dr: García Cote MD Ordered: URINE CULT Procedure Result Verified Site Microbiology MARCOS CULT URINE Final 10/08/16-833 Organism 1 MIXED UROGENITAL MANJU U COLONY COUNT/QUANTITY 10-25,000 CFU/ml X-Rays, CTs and MRIs Date of Service: 10/06/161818 PROCEDURE: CT ABDOMEN AND PELVIS WITH CONTRAST INDICATIONS: Right upper quadrant abdominal pain. TECHNIQUE: After the administration of oral and intravenous contrast, 5 mm thick sections acquired from the diaphragms to the symphysis. 5 mm thick coronal and sagittal reformats were performed. For radiation dose reduction, the following was used : automated exposure control, adjustment of mA and/or kV according to patient size. COMPARISON: None. FINDINGS: Image quality: Excellent. ABDOMEN: Lung bases: There is mild dependent atelectasis. A small hiatal hernia is present. Heart size is normal. Solid organs: Liver and spleen are normal in size and enhancement. Gallbladder appears within normal limits without calcified gallstones or wall thickening. Biliary system is non-dilated. No adrenal nodules. Kidneys are normal in size and enhancement, without hydronephrosis. There is mild fat stranding within the mesenteric root along the uncinate process of the pancreas and adjacent to the 3rd portion of duodenum. Peritoneum and bowel: Stomach, small bowel, and colon loops are normal in caliber and wall thickness. No free fluid or air. Nodes and vessels: No retroperitoneal or mesenteric adenopathy. Aorta and inferior vena cava are normal in caliber. Miscellaneous: No ventral hernias. PELVIS: Genitourinary: Bladder wall thickness is normal. Miscellaneous: No inguinal hernias or adenopathy. Bones: No suspicious bony lesions. No vertebral body compression fractures. IMPRESSION: 1. Mild mesenteric fat stranding adjacent to the uncinate process of the pancreas and 3rd portion of the duodenum may reflect a mild pancreatitis or duodenitis. Recommend correlation clinically including with laboratory values. No evidence of associated fluid collections or free air. Dictated by: Yoan Garcia M.D. on 10/06/2016 at 18:43 Approved by: Yoan Garcia M.D. on 10/06/2016 at 18:51 Additional Diagnostics Date of Service: 10/06/16 1720 PROCEDURE: US ABDOMEN INDICATIONS: ruq pain, suspect cholecystitis TECHNIQUE: Real-time scanning was performed of the abdominal and retroperitoneal organs, with image documentation. COMPARISON: [facility], CT, CT ABD PELVIS W CON, 10/06/2016, 18:34. FINDINGS: Liver: Liver is normal in size with increased cortical echogenicity and a coarse sonographic echotexture consistent with fatty infiltration. Gallbladder: No gallstones, gallbladder wall thickening, or pericholecystic fluid. Biliary ducts: Intrahepatic bile ducts are non-dilated. Extrahepatic bile duct caliber measures up to 4 mm. Normal is 6-7 mm or less in diameter, or 10 mm or less post-cholecystectomy. Pancreas: Visualized portions of the pancreas are sonographically normal. Spleen: Spleen is normal in size and homogeneous in echotexture. Kidneys: Right kidney measures 10.6 cm long; left kidney measures 11.1 cm long. No hydronephrosis. Aorta: Visualized aorta is normal in caliber at less than 3 cm. Iliacs: Proximal common iliac arteries are normal in caliber at less than 2.5 cm. IVC: Intrahepatic inferior vena cava is patent. Miscellaneous: No free abdominal fluid. IMPRESSION: 1. No evidence of cholelithiasis or cholecystitis. 2. Increased hepatic echogenicity compatible with steatosis. Dictated by: Yoan Garcia M.D. on 10/06/2016 at 19:22 Approved by: Yoan Garcia M.D. on 10/06/2016 at 19:24 Assessment & Plan 61 yo female with long history of GERD, obstructive sleep apnea on home CPAP, hypothyroidism, hypertension, and hyperlipidemia who presented to [facility] for new onset, worsening epigastric abdominal pain on 10/06/2016. Gastroenterology was consulted to evaluate for possible duodenal ulcer. Imaging: -Ultrasound abdomen: No evidence of cholelithiasis or cholecystitis. Increased hepatic echogenicity compatible with steatosis. -CT abdomen and pelvis: Mild mesenteric fat stranding adjacent to the uncinate process of the pancreas and 3rd portion of the duodenum may reflect a mild pancreatitis or duodenitis. Recommend correlation clinically including with laboratory values. No evidence of associated fluid collections or free air. -Past EGD done by for failing PPI therapy in 10/13/2003: a 3 cm hiatal hernia was seen, irregular squamocolumnar junction was biopsied. -Recent EGD done by Dr. Douglas Menon on 10/08/16 showed no evidence of duodenal inflammation. Mild esophagitis noted. Biopsies from the distal duodenum to the proximal duodenum were obtained. Pathology pending. Assessments: 1. Epigastric abdominal pain, present on admission, active. 2. GERD with mild esophagitis noted on the upper endoscopy on 10/08/16. 3. Normocytic anemia, not present on admission, active. Plans: - CT abd and pelvis was reviewed with radiology and confirmed no fluid collections or free air and the mild mesenteric fat stranding is not significant for pancreatitis. - The etiology of the patient's abdominal pain is likely secondary to uncontrolled GERD. - Patient should be discharged with Protonix 20mg PO BID. - MRI with and without contrast of the pancreas and MRCP in 4 weeks to review these results when I see her in clinic. - Follow up in GI clinic 6 weeks - GERD behavioral modification discussed with the patient: - Avoid fatty, acidic, spicy, large meals. Eat small meals at a time. - Do not lie down after meals - Decrease caffeine intake - Avoid carbonated and alcoholic drinks - Weight reduction - Avoid NSAIDs such as Ibuprofen, Aleve, Advil, Naproxen, etc. Thank you Dr. Logan Ovalles for the consultation. We will sign off at this time. Please contact us for any question or concern. I have seen and examine the pt with the resident and agree with above. Pain Evaluation: Adequate Pain Control GI Prophylaxis: Proton Pump Inhibitor VTE Prophylaxis: Sub-Q Heparin (Unfractionated) VTE Mechanical Devices: Intermittant Pneumatic CD Resuscitation Status: CPR: Attempt Resuscitation Teja Guerra DO Oct 09, 2016 17:06 Douglas Menon MD Oct 10, 2016 11:52
--- NOTE | 2016-10-09 20:19 | PCM.DIMED ---
Discharge Instructions Date of Service Oct 09, 2016 Dates of Hospitalization Oct 06, 2016 at 20:29 Discharge Diagnosis Discharge Diagnosis Pancreatitis Diet Heart Healthy Activity No restrictions (Patient may return to usual activities gradually as tolerated.) Call your provider Fever or Chills, Shortness of breath, Bleeding, Chest pain, Vomitting, Excessive diarrhea, Weakness (unilateral) Patient Instructions Follow-up Provider: Babita Adair Follow-up with PCP in: 1 week Provider: Douglas Menon MD Follow-up in: 6 weeks Slava Ovalles MD Oct 09, 2016 20:19
[2016-10-09] MEDS ORDERED: SENN-133 PO (20:22)
--- NOTE | 2016-10-09 21:15 | NUR ---
Discharge Pt escorted by Kandace Carreno and daughter off unit. All items including CPAP were taken. Follow up dates and information gone over with patient and daughter in room. IV dc'd prior by Jory LINN.
--- NOTE | 2016-10-10 00:21 | PCM.DC.MED ---
Discharge Summary Date of Service Oct 09, 2016 Dates of Hospitalization Date of Hospital Admission Oct 06, 2016 at 20:29 Date of Discharge: Oct 09, 2016 Providers: Admitting Physician: Renetta Melara DO Primary Care Physician: Babita Adair Attending Physician: Renetta Melara DO Diagnosis at Time of Discharge Diagnosis at Time of Discharge Pancreatitis Consultations Dr. Menon of gastroenterology Procedures XRay, CTs & MRIs Date of Service: 10/06/16 1819 PROCEDURE: CT ABDOMEN AND PELVIS WITH CONTRAST INDICATIONS: Right upper quadrant abdominal pain. TECHNIQUE: After the administration of oral and intravenous contrast, 5 mm thick sections acquired from the diaphragms to the symphysis. 5 mm thick coronal and sagittal reformats were performed. For radiation dose reduction, the following was used : automated exposure control, adjustment of mA and/or kV according to patient size. COMPARISON: None. FINDINGS: Image quality: Excellent. ABDOMEN: Lung bases: There is mild dependent atelectasis. A small hiatal hernia is present. Heart size is normal. Solid organs: Liver and spleen are normal in size and enhancement. Gallbladder appears within normal limits without calcified gallstones or wall thickening. Biliary system is non-dilated. No adrenal nodules. Kidneys are normal in size and enhancement, without hydronephrosis. There is mild fat stranding within the mesenteric root along the uncinate process of the pancreas and adjacent to the 3rd portion of duodenum. Peritoneum and bowel: Stomach, small bowel, and colon loops are normal in caliber and wall thickness. No free fluid or air. Nodes and vessels: No retroperitoneal or mesenteric adenopathy. Aorta and inferior vena cava are normal in caliber. Miscellaneous: No ventral hernias. PELVIS: Genitourinary: Bladder wall thickness is normal. Miscellaneous: No inguinal hernias or adenopathy. Bones: No suspicious bony lesions. No vertebral body compression fractures. IMPRESSION: 1. Mild mesenteric fat stranding adjacent to the uncinate process of the pancreas and 3rd portion of the duodenum may reflect a mild pancreatitis or duodenitis. Recommend correlation clinically including with laboratory values. No evidence of associated fluid collections or free air. Dictated by: Yoan Garcia M.D. on 10/06/2016 at 18:43 Approved by: Yoan Garcia M.D. on 10/06/2016 at 18:51 Other Diagnostics Date of Service: 10/06/16 1720 PROCEDURE: US ABDOMEN INDICATIONS: ruq pain, suspect cholecystitis TECHNIQUE: Real-time scanning was performed of the abdominal and retroperitoneal organs, with image documentation. COMPARISON: [facility], CT, CT ABD PELVIS W AMBER, 10/06/2016, 18:34. FINDINGS: Liver: Liver is normal in size with increased cortical echogenicity and a coarse sonographic echotexture consistent with fatty infiltration. Gallbladder: No gallstones, gallbladder wall thickening, or pericholecystic fluid. Biliary ducts: Intrahepatic bile ducts are non-dilated. Extrahepatic bile duct caliber measures up to 4 mm. Normal is 6-7 mm or less in diameter, or 10 mm or less post-cholecystectomy. Pancreas: Visualized portions of the pancreas are sonographically normal. Spleen: Spleen is normal in size and homogeneous in echotexture. Kidneys: Right kidney measures 10.6 cm long; left kidney measures 11.1 cm long. No hydronephrosis. Aorta: Visualized aorta is normal in caliber at less than 3 cm. Iliacs: Proximal common iliac arteries are normal in caliber at less than 2.5 cm. IVC: Intrahepatic inferior vena cava is patent. Miscellaneous: No free abdominal fluid. IMPRESSION: 1. No evidence of cholelithiasis or cholecystitis. 2. Increased hepatic echogenicity compatible with steatosis. Dictated by: Yoan Garcia M.D. on 10/06/2016 at 19:22 Approved by: Yoan Garcia M.D. on 10/06/2016 at 19:24 Brief History Ms. Esperanza Hunt is a 61 yo female with long history of GERD, obstructive sleep apnea on home CPAP, hypothyroidism, hypertension, and hyperlipidemia who presented to [facility] for worsening epigastric abdominal pain on 10/06/2016. Patient reports intermittent abdominal cramps for the last 2 days prior to admission. However, she woke up with severe epigastric pain that radiates to her back on 04/09. She also admits to associated nausea, but no vomiting, fever, chills, hematemesis, hematochezia, melena, diarrhea, or constipation. Patient reports that she has a history of "bleeding duodenal ulcer" that required an EGD when she was 21 years old. She has been on Nexium and has not had any similar symptoms since. Per record, patient had another EGD done on 10/13/[address] Frank that showed normal duodenum, a 3 cm hiatal hernia, irregular squamocolumnar junction that was biopsied. In the last 3 months, patient reports worsening acid reflux with lying down at night. She admits to occasional vomiting and aspiration while lying down. Her PCP ordered a Barium swallow that is scheduled to be today 10/08. Besides the Nexium, she is not taking any other medication for GERD. She denies taking NSAIDs on the regular basis, but admits to drinking 2 cups of coffee in the morning, some tea, and spicy/fatty diet. Patient reports to have a normal colonoscopy in her 50s. She denies alcohol, tobacco, or drug use. Her abdominal pain has improved since she got to the hospital. On admission, patient was found to have leukocytosis up to 20.2 that has been trending down. H/H trending down, currently at 10.7/34.2. LFTs within normal limit. Lipased was initially elevated to 90 on 10/06 but decreased to 34 today. Ultrasound abdomen showed no evidence of cholelithiasis or cholecystitis. Increased hepatic echogenicity compatible with steatosis. CT abdomen and pelvis showed mild mesenteric fat stranding adjacent to the uncinate process of the pancreas and 3rd portion of the duodenum may reflect a mild pancreatitis or duodenitis. No evidence of associated fluid collections or free air. Gastroenterology service was consulted for possible endoscopy to rule out duodenitis or duodenal ulcer. Exam Vital Signs (Last) Date Time Temp Pulse Resp B/P Pulse Ox O2 Delivery O2 Flow Rate FiO2 10/09/16 20:47 36.9 64 17 145/90 97 Room Air 10/08/16 16:21 4 Exam General: The patient is in no apparent distress laying supine in bed. She does complain of some crampy abdominal pain. HEENT: Head is atraumatic and normocephalic. Eyes: Pupils are equally round and reactive to light and accommodation. Extraocular muscles are intact. Sclera are white, anicteric. Subconjunctival mucosa is pink. Ears and nose are unremarkable. Oropharynx: There is no mucosal lesions, there is no thrush, there is no pharyngitis. Neck: Is supple, there are no nodes, or masses or tenderness. Chest: Is clear to auscultation and percussion. There are no rales, rhonchi, wheezes or rubs. Heart: Rate, rhythm is regular. There is no murmur, rub or gallop. Abdomen: Good bowel sounds are present. Abdomen is obese, soft, with decreased right upper quadrant and epigastric tenderness. There is no rebound tenderness. There is no organomegaly or masses were appreciated. Extremities: Are symmetrical and well perfused. There is no edema, there is no cellulitis, no rash. Neurologic: There are no focal neurological deficits. Cranial nerves II through XII are intact. There are no sensory or motor deficits. Psychiatric: Patients mood is calm and shows no sign of agitation. Genital: Deferred Rectal: Deferred Test 10/06/16 16:18 10/06/16 17:05 10/06/16 17:24 10/06/16 22:20 Hemoglobin A1c 7.0% (4.8-5.6) Hold Urine Received (Received) Hold Cooley Top Tube Received (Received) Urine Color Yellow (YELLOW) Urine Appearance Clear (CLEAR,HAZY) Urine pH 6.0 (5.0-8.0) Urine Specific [place] 1.020 (1.003-1.035) Urine Protein Negativemg/dL (NEG,TRACE) Urine Glucose (UA) Negativemg/dL (NEGATIVE) Urine Ketones Negativemg/dL (NEGATIVE) Urine Occult Blood Trace (NEGATIVE) Urine Nitrite Negative (NEGATIVE) Urine Bilirubin Negative (NEGATIVE) Urine Urobilinogen Normalmg/dL (NORMAL) Urine Leukocyte Esterase Moderate (NEGATIVE) Urine RBC 0-2/hpf (0-2) Urine WBC 0-5/hpf (0-5) Urine Epithelial Cells Few/hpf (NONE-MOD) Urine Crystals None seen (NONE SEEN) Urine Bacteria Few/hpf (NONE-FEW) Urine Hyaline Casts None/lpf (NONE) Urine Granular Casts None seen (NONE SEEN) Urine Waxy Casts None seen (NONE SEEN) Urine Red Blood Cell Casts None seen (NONE SEEN) Urine White Blood Cell Casts None seen (NONE SEEN) Urine Mucus None seen (None Seen) Urine Trichomonas None seen (NONE SEEN) Urine Yeast None (NONE SEEN) Urinalysis Comment None Urine Culture Reflexed Indicated Erythrocyte Sedimentation Rate 32mm/hr (0-40) C-Reactive Protein 3.9mg/dL (0.0-0.5) Test 10/07/16 03:40 10/08/16 06:20 10/09/16 06:05 Lactic Acid Level 1.1mmol/L (0.4-2.0) Triglycerides Level 216mg/dL (0-149) Cholesterol Level 150mg/dL (100-199) LDL Cholesterol, Calculated 71.800mg/dL (0-99) VLDL Cholesterol 43.200mg/dL HDL Cholesterol 35mg/dL (>39) Cholesterol/HDL Ratio 4.29 (0.0-4.4) Phosphorus Level 2.7mg/dL (2.5-4.9) Lipase 34U/L (13-60) Procalcitonin 0.04ng/mL (0.00-0.08) White Blood Count 10.4th/mm3 (3.8-10.1) Red Blood Count 3.53mil/mm3 (3.90-5.20) Hemoglobin 10.5g/dL (12.0-15.6) Hematocrit 32.4% (35.0-46.0) Mean Corpuscular Volume 91.8fL (81-100) Mean Corpuscular Hemoglobin 29.7pg (27.0-35.0) Mean Corpuscular Hemoglobin Concent 32.4% (32.0-37.0) Red Cell Distribution Width 14.0% (12.3-15.4) Platelet Count 277bil/L (150-400) Neutrophils (%) (Auto) 63.5% (40-74) Lymphocytes (%) (Auto) 25.7% (14-46) Monocytes (%) (Auto) 7.6% (4-12) Eosinophils (%) (Auto) 2.8% (0-5) Basophils (%) (Auto) 0.2% (0-3) Sodium Level 139mEq/L (134-144) Potassium Level 4.5mEq/L (3.5-5.2) Chloride Level 105mEq/L (97-108) Carbon Dioxide Level 19mmol/L (18-29) Blood Urea Nitrogen 8mg/dL (8-27) Creatinine 0.75mg/dL (0.57-1.00) Estimat Glomerular Filtration Rate 112mL/min (>59) Glucose Level 83mg/dL (60-99) Calcium Level 8.2mg/dL (8.5-10.1) Magnesium Level 1.8mg/dL (1.6-2.6) Total Bilirubin 0.4mg/dL (0.0-1.2) Aspartate Amino Transf (AST/SGOT) 25U/L (0-50) Alanine Aminotransferase (ALT/SGPT) 13U/L (0-32) Alkaline Phosphatase 61U/L (25-165) Total Protein 6.0g/dL (6.4-8.4) Albumin 3.1g/dL (3.4-5.0) Thyroid Stimulating Hormone (TSH) 7.690uIU/mL (0.450-4.500) Free Thyroxine 0.96ng/dL (0.82-1.77) Microbiology Results Name: ESPERANZA HUNT Age/Sex: 61/F Attend Dr: Renetta Melara Acct: [id number] Unit: [id number] Status: ADM Reed Location: [place] [address]-2 Re10/06/16 Disch: Specimen: [id number] Collected: 10/06/16 Status: NANY Mejia#: [id number] Received: 10/06/16 Source: URINE CC Sp Desc : PP Subm Dr: García Cote MD Ordered: URINE CULT Procedure Result Verified Site Microbiology MARCOS CULT URINE Final 10/08/16-833 Organism 1 MIXED UROGENITAL MANJU U COLONY COUNT/QUANTITY 10-25,000 CFU/ml Discharge Medications Discharge Medications Aspirin Chew (Aspirin Chew) 81 Mg Chew 81 MG PO HS (Reported) Atorvastatin (Lipitor) 20 Mg Tablet 20 MG PO HS Prescribed by: TREVON BONILLA DO Chlorthalidone (Chlorthalidone) 25 Mg Tablet 25 MG PO DAILY Prescribed by: SAMARA BRYANT DO Duloxetine (Cymbalta) 60 Mg Capsule. 90 MG PO HS (Reported) Take a 60 mg and 30 mg pill together Esomeprazole Magnesium (Nexium) 20 Mg Capsule. 40 MG PO BIDWM (Reported) Folic Acid/Multivits-Min/Lut (Multi-Vitamin Gummies) 1 Each Tab.chew 1 EACH PO HS (Reported) Levothyroxine (Levothyroxine) 50 Mcg Tablet 50 MCG PO QAM (Reported) Lisinopril (Lisinopril) 10 Mg Tablet 10 MG PO BID (Reported) Magnesium Oxide (Magnesium) 500 Mg Capsule 500 MG PO HS (Reported) [place]-3 Fatty Acids/Fish Oil ([place] 3 Fish Oil Softgel) 1 Each Capsule.dr 1 EACH PO HS (Reported) As needed Famciclovir (Famciclovir) 500 Mg Tablet 500 MG PO TID PRN PRN HERPES BREAKOUT ( Reported) Lorazepam (Lorazepam) 0.5 Mg Tablet 0.5 MG PO Q8H PRN PRN For Anxiety (Reported ) Sennosides (Senna) 8.6 Mg Tablet 17.2 MG PO BID PRN PRN For Constipation Prescribed by: LYLY ONEAL MD Simethicone (Gas-X) 80 Mg Tablet 80-160 MG PO DAILY PRN PRN GAS (Reported) Followup Plan Disposition: Patient is being discharged home. Discharge Diet: Heart Healthy Discharge Activity: No restrictions (Patient may return to usual activities gradually as tolerated.) Follow-up Provider: Babita Adair Follow-up with PCP in: 1 week Provider: Douglas Menon MD Follow-up in: 6 weeks Time spent Time spent on discharging this patient was greater than 35 minutes, over half of which was involved in counseling and coordination of care. Slava Oneal MD Oct 10, 2016 00:21
[2016-10-10] MEDS ORDERED: Sodium Chloride LOK Flush 10 mL Syringe IVFLUSH SCH (00:30)
--- NOTE | 2016-10-10 11:42 | PATH ---
SURGICAL PATHOLOGY Attending Physician:Douglas Menon M.D. CASE STATUS: Signed Out PATIENT NAME: SHRUTHI HUNT PID: [id number] : 1955 DATE COLLECTED:10/08/2016 00:00 SPECIMEN: 1: Duodenum, Biopsy 2: Esophagus, Biopsy CLINICAL HISTORY: 1). DUODENAL BIOPSY 2). DISTAL ESOPHAGUS FINAL DIAGNOSIS: 1.DUODENAL BIOPSY: CHANGES CONSISTENT WITH MILD CHRONIC DUODENITIS. Negative for evidence of celiac disease. Negative for dysplasia and malignancy. 2.DISTAL ESOPHAGUS BIOPSY: FRAGMENTS OF GASTRIC OXYNTIC-TYPE MUCOSA WITH NO SQUAMOUS EPITHELIUM IDENTIFIED. MINIMAL CHRONIC INFLAMMATION AND NEGATIVE FOR SPECIALIZED METAPLASIA OF NARAYAN' S-TYPE ESOPHAGUS. NEGATIVE FOR EVIDENCE OF HELICOBACTER. Negative for dysplasia and malignancy. ICD10 code K29.80 GROSS DESCRIPTION: The specimen is received in two formalin filled containers labeled with the patient's name. 1). The specimen is sublabeled "duodenal" and consists of 3 portions of tissue which aggregate to 0.3 x 0.3 x 0.2 CM. The specimen is entirely submitted in cassette 1A. 2). The specimen is sublabeled "distal esophagus" and consists of a 0.3 x 0.3 x 0.3 CM portion of tissue which is entirely submitted in cassette 2A. 10/09/2016 [facility] MICRO DESCRIPTION: See diagnosis. ICD-9 CODES: CPT CODES: 1: 34701 2: 93643 Electronically Signed Out Edinson Mendiola MD [facility] [address], [place] [address] Technical component performed at [facility], [facility] [address], [place], [address]
== END 2016-10-09 21:10 | disposition home or self-care (01) | DRG 440 ==
LOC: SED 16:04 → INTOOBSV 20:29 → OBSVTOIN 20:29 → MOC 20:29
PROVIDERS: ADMIT Internal Medicine; ATTEND Internal Medicine
PROC: 0DB18ZX Excision of Upper Esophagus, Via Natural or Artificial Opening Endoscopic, Diagnostic (ICD-10-PCS; 2016-10-08)
PROC: 0DB98ZX Excision of Duodenum, Via Natural or Artificial Opening Endoscopic, Diagnostic (ICD-10-PCS; principal; 2016-10-08 16:00)
DX: K85.90 Acute pancreatitis without necrosis or infection, unspecified (principal); K21.9 Gastro-esophageal reflux disease without esophagitis; G47.33 Obstructive sleep apnea (adult) (pediatric); E03.9 Hypothyroidism, unspecified; I10 Essential (primary) hypertension; E78.5 Hyperlipidemia, unspecified; R11.2 Nausea with vomiting, unspecified; Z87.891 Personal history of nicotine dependence; R73.9 Hyperglycemia, unspecified; K20.9 Esophagitis, unspecified; K44.9 Diaphragmatic hernia without obstruction or gangrene

== ENCOUNTER 2017-01-01 07:47 | Day surgery (SDC) | payer OTHER ==
[~2017-01-01] VITALS: Ht 154.9 cm; Wt 89.8 kg
[~2017-01-01 07:47] MED LIST changes: +0.9% Sodium Chloride 1,000 ML IV SCH; -ASPI-628 PO; +ASPI325T32 PO; +FAMC500T18 PO; +FOLI-89 PO; +LISI10TA PO; -MAGN250T29 PO; +MAGN500C4 PO; -MULT-1007 PO; -RISP0.254 PO; +SENN-133 PO; +SIME80TA53 PO; +Sodium Chloride LOK Flush 10 mL Syringe IV PRN; -VERA180T5 PO; +fentaNYL-PF 50 mCg/mL 2 mL Inj IVPUSH PRN
[2017-01-01 08:08] VITALS: BP 115/67; PULSE 75; RESP 15; O2SAT 94
[2017-01-01] MEDS ORDERED: LOSA25TA21 PO (08:18)
[2017-01-01] MEDS ORDERED: RISP1TAB3 PO (08:18)
--- NOTE | 2017-01-01 08:54 | PCM.ENDCOL ---
Colonoscopy Date of Service: Jan 01, 2017 Physician Douglas Menon MD Pre Procedure Diagnosis: Screening constipation Post Procedure Dx & Findings: Hemorrhoids Procedure Colonoscopy PROCEDURE IN DETAIL: Prep adequate Withdrawal time 11 minutes After unremarkable rectal examination the Olympus video colonoscope was inserted patient's anal canal and was advanced to cecum. Landmarks were identified including the ileocecal valve and appendiceal orifice. Scope was withdrawn systematically. Visualized colonic mucosa showed healthy shiny mucosa with normal healthy-appearing vasculature. In the rectum retroflexion was done which showed hemorrhoids. Anal canal was inspected carefully on the way out and hemorrhoids noted. Impression Hemorrhoids Recommendation Repeat colonoscopy in 10 years if there is no personal or family history of colon cancer polyp. If so repeat in 5 years. Follow up in GI clinic as instructed. Presedation Assessment Risks and Benefits Informed consent was obtained from the patient after all risks and benefits including but not limited to drug reaction, infection, pain, bleeding, perforation, as well as alternatives were discussed. Patient monitoring Continuous pulse oximetry, cardiac monitoring, blood pressure monitoring, IV access, and oxygen at 2L per nasal cannula. Periprocedural Fentanyl: Fentanyl 100mcg Incrementally Midazolam: Midazolam 5mg Incrementally Complications There were no periprocedural complications identified. Post Procedure Plan Post Procedure Recommendations 1. Restrict activities today. 2. Resume normal activities in the morning. 3. Resume medications. 4. Patient informed of normal post procedure side effects as bloating, drowsiness, blood streaking in the stool. 5. average risk CRCS. If colon polyps come back as: -Hyperplastic- can repeat colonoscopy in 10 years -Tubular adenoma- repeat colonoscopy in 5 years -Tubulovillous/villous adenoma- repeat colonoscopy in 3 years -If any dysplasia- return to clinic as soon as possible 6. Please don't hesitate to call me with any questions. Douglas Menon MD Jan 01, 2017 08:54
[2017-01-01 08:58] VITALS: BP 104/59; PULSE 73; RESP 16; O2SAT 94
[2017-01-01 09:08] VITALS: BP 94/53; PULSE 63; RESP 16; O2SAT 95
[2017-01-01 09:18] VITALS: BP 95/52; PULSE 61; RESP 16; O2SAT 94
[2017-01-01 09:28] VITALS: BP 92/45; PULSE 70; RESP 16; O2SAT 95
== END 2017-01-01 23:59 | disposition home or self-care (01) ==
LOC: END 07:47
PROVIDERS: ATTEND Internal Medicine
DX: K59.09 Other constipation (principal); G47.33 Obstructive sleep apnea (adult) (pediatric); I10 Essential (primary) hypertension; K64.9 Unspecified hemorrhoids; Z79.82 Long term (current) use of aspirin
CPT/HCPCS: 45378; G0500; J2250; J3010; J7030